=== PATIENT | female | born 1985 ===

== ENCOUNTER 2020-09-22 09:11 | Outpatient (REF) | payer MEDICAID, SELFPAY ==
--- NOTE | 2020-09-22 09:19 | EMG_ITS ---
Right median and ulnar motor and sensory studies were performed. Right radial sensory study was performed and paraspinal muscles were tested. IMPRESSION: Mild right median neuropathy across carpal tunnel. MD EDWARD Church/LIV / [id number]
== END 2020-09-22 09:12 | disposition home or self-care (01) ==
LOC: HO.NEURO 09:11
PROVIDERS: PCP Emergency Medicine; Visit Provider Emergency Medicine
DX: M25.531 Pain in right wrist (principal); M79.641 Pain in right hand
CPT/HCPCS: 95860; 95886; 95909

== ENCOUNTER 2021-02-08 18:02 | Emergency (ER) | payer MEDICAID, SELFPAY ==
[2021-02-08 20:37] VITALS: BP 129/85; PULSE 69; RESP 16; TEMP 37.1; O2SAT 97; BMI 22.4
--- NOTE | 2021-02-08 21:33 | ED_ITS ---
HPI - Wound/Laceration General Chief Complaint: Wound/Laceration Stated Complaint: Finger lac Time Seen by Provider: 02/08/21 21:33 Source: patient and contact center engineer Mode of arrival: ambulatory History of Present Illness HPI narrative: This is a 35-year-old female who presents after having lacerated her right index finger on the dorsum side at the approximate PIP location and is unclear about when her last tetanus vaccination was received. She denies any changes in range of motion of that finger and denies any numbness/tingling. Related Data Allergies Allergy/AdvReac Type Severity Reaction Status Date / Time tramadol [TRAMADOL] Allergy Unknown UNKNOWN, Unverified 08/18/20 18:55 rash, rash Review of Systems Review of Systems: Pertinent positives and negatives as stated in HPI 10 point review of systems is otherwise negative. PMFSH Past Medical History Source: nursing notes reviewed Medical History No known health problems Social History Social History Alcohol intake: never Smoked in Last 30 Days: No Use of substances other than those prescribed or required for medical reasons: No Advance Directives: No Advance Directives Information Provided: Yes Physical Exam Vital Signs: Vital Signs: Last Vital Signs Temp 98.7 F 02/08/21 20:37 Pulse 69 02/08/21 20:37 Resp 16 02/08/21 20:37 BP 129/85 02/08/21 20:37 Pulse Ox 97 02/08/21 20:37 Body Mass Index 22.4 VITAL SIGNS: Reviewed. GENERAL: Well developed, well nourished, in no acute distress. HEAD: Normocephalic/atraumatic, EYES: PERRLA, EOMI EARS: Ext canals without abnormality NOSE: Nares patent bilateral OROPHARYNX: no oral lesions noted, posterior pharynx clear NECK: Supple, no adenopathy LUNGS: Normal breath sounds. SpO2<97> CARDIOVASCULAR: Regular rate and rhythm without noted murmurs ABDOMEN: Soft, non-tender, non-distended with bowel sounds. RIGHT INDEX FINGER: 2 cm superficial laceration to the right dorsum index finger, hemostatic, capillary refill less than 3 seconds, sensation intact, no evidence of limited extension or flexion at the PIP NEUROLOGIC: Alert and oriented x 4. Course Course Course Narrative: This is a 35-year-old female with history and clinical presentation consistent with superficial laceration to the right index finger without limitations in range of motion or sensation noted. Patient tolerated repair of this laceration without complications and was discharged home in stable condition after receiving her Tdap. She was instructed to return in 5 days for removal of sutures. Procedures Laceration Laceration 1: Site: hand (Index finger PIP) Side (If applicable): right Size (cm): 2 Description: linear Depth: simple, single layer Local Anesthetic: lidocaine 1% Amount of anesthesia used (mL): 5 Pre-repair: wound explored, irrigated extensively and deep structures intact Skin layer closed with: nylon Size (cm): 4-0 Number of sutures: 3 Technique: simple, interrupted Discharge Plan Discharge Clinical Impression: Laceration Patient Disposition: Home, Self-Care Instructions: Care For Your Stitches (ED), Finger Laceration (ED) Additional Instructions: 1. Tylenol 1000 mg, por v?a oral, cada 6 horas seg?n sea necesario para sean corporales y temperaturas superiores a 100,4?C. No exceda los 4000 mg en 24 horas. 2. Ibuprofeno 400 mg, por v?a oral con leche o alimentos, cada 6 horas seg?n sea necesario para los sean corporales y temperaturas superiores a 100,4?C. 3. Puede quitar el vendaje en 24 horas y limpiar la herida con agua y jab?n, luego secar y aplicar un mayra?ento antibi?valentine de venta lucy con bladimir tirita. 3. Debe pedirle a patel proveedor de atenci?n primaria que retire las suturas en 5 d?as, o puede regresar a esta dago de emergencias para que se las retiren. No dude en volver al servicio de urgencias si empez? a desarrollar enrojecimiento, hinchaz?n, supuraci?n purulenta, fiebre, escalofr?os. Referrals: Physician,Unknown [Primary Care Provider] - 2 days Interventions: ED Discharge Assessment Last Done: 02/08/21 22:35 Discharge Date/Time: 02/08/21 22:37 Print Language: Citizen Of [place]
[2021-02-08] MEDS: Lidocaine HCl 1 % MPF 5 ML VIAL INFILTRATI (21:53)
== END 2021-02-08 22:37 | disposition home or self-care (01) ==
PROVIDERS: Emergency Provider Student in an Organized Health Care Education/Training Program
DX: S61.210A Laceration without foreign body of right index finger without damage to nail, initial encounter (principal); W26.8XXA Contact with other sharp object(s), not elsewhere classified, initial encounter; Y93.G1 Activity, food preparation and clean up; Y92.010 Kitchen of single-family (private) house as the place of occurrence of the external cause; Y99.9 Unspecified external cause status
CPT/HCPCS: 12001; 90471; 90715; 99284

== ENCOUNTER 2021-09-22 13:42 | Outpatient (REF) | payer MEDICAID, SELFPAY ==
--- NOTE | ~2021-09-22 | MM_ITS ---
EXAMINATION: MM DIAGNOSTIC DIGITAL BREAST TOMOSYNTHESIS, BILATERAL US DIAGNOSTIC ULTRASOUND BREAST, LEFT CLINICAL INFORMATION: 35-year-old with chronic pea-sized palpable area left axilla for over one year. No prior breast imaging. No known family history breast cancer. The lifetime risk of breast cancer based on the Tyrer-Cuzick Model is 10%. COMPARISON: None (current study represents initial baseline exam). TECHNIQUE: Digital breast tomosynthesis is performed in both the craniocaudal and mediolateral oblique views along with computer-aided detection (CAD). Synthesized 2D images are generated from the tomosynthesis. Ultrasound left axilla is targeted to the area of clinical concern. Patient is able to point to the area at time of imaging. Grayscale imaging and color Doppler are performed without and with harmonics. FINDINGS: There are scattered areas of fibroglandular density (ACR BI-RADS breast composition Category b). There are no significant masses, abnormal calcifications, or other abnormalities. There is a dermal lesion overlying the posterior 1:00 right breast. The axilla and skin contours are unremarkable. Ultrasound left axilla demonstrates no cystic or solid mass or adenopathy. There is no skin thickening or edema tracking in soft tissue planes. Results are discussed with the patient at time of visit. Patient should be managed based on the clinical impression. If there remains a clinically palpable concern, further evaluation may be considered with surgical consult. Decision to proceed with biopsy should be based on clinical grounds and degree of clinical concern. MM/MM tomosynthesis diagnostic BI IMPRESSION: 1. No mammographic evidence of malignancy or inflammatory changes. 2. Unremarkable ultrasound left axilla. ASSESSMENT: BI-RADS 1: Negative RECOMMENDATION: 1. Patient should be managed based on the clinical impression. If there remains a clinically palpable concern, further evaluation may be considered with surgical consult. Decision to proceed with biopsy should be based on clinical grounds and degree of clinical concern. 2. Otherwise, routine annual screening mammography, beginning age 40, or earlier as clinical risk factors warrant. This patient's information was entered into a reminder system with a target due date for their next mammogram.
== END 2021-09-22 13:43 | disposition home or self-care (01) ==
LOC: HO.MAMMO 13:42
PROVIDERS: PCP Internal Medicine; Visit Provider Advanced Practice Midwife
DX: N63.32 Unspecified lump in axillary tail of the left breast (principal)
CPT/HCPCS: 76642; 77062; 77066

== ENCOUNTER 2021-10-12 13:18 | Outpatient (REF) | payer MEDICAID, SELFPAY | END 2021-10-12 13:19 | disposition home or self-care (01) | LOC: HO.US 13:18 | PROVIDERS: PCP Internal Medicine; Visit Provider Advanced Practice Midwife | DX: Z13.89 Encounter for screening for other disorder (principal) ==

== ENCOUNTER 2021-10-24 15:55 | Outpatient (REF) | payer MEDICAID, SELFPAY ==
--- NOTE | ~2021-10-24 | US_ITS ---
EXAMINATION: US PELVIS CLINICAL INFORMATION: Left lower quadrant pain. COMPARISON: None TECHNIQUE: Ultrasound of the pelvis is performed using both transabdominal and transvaginal transducers along with Doppler. Transvaginal imaging is performed due to inadequate visualization transabdominally. FINDINGS: Uterus: The uterus is anteverted and measures 10.0 cm in length, 3.5 cm in AP and 5.4 cm in transverse dimension. The endometrial thickness is 0.8 cm. The double wall endometrial thickness is 8 mm. The uterus is smooth in contour and has normal myometrial echogenicity. No visible fibroid. Adnexa: Both ovaries are visualized. There is normal color flow to the adnexa. There is no ovarian torsion. There is no pelvic ascites or fluid collection. Right ovary measures 2.1 x 3.1 x 2.0 and volume 6.7 mL. Left ovary measures 2.3 x 1.8 x 1.8 cm and volume 4.0 mL. There is no free fluid in the cul-de-sac. US/US pelvic and transvaginal IMPRESSION: Unremarkable uterus. Unremarkable ovaries.
== END 2021-10-24 15:56 | disposition home or self-care (01) ==
LOC: HO.US 15:55
PROVIDERS: PCP Internal Medicine; Visit Provider Advanced Practice Midwife
DX: R10.32 Left lower quadrant pain (principal)
CPT/HCPCS: 76830; 76856

== ENCOUNTER → 2022-02-21 12:38 | Outpatient (REF) | payer MEDICAID, SELFPAY ==
--- NOTE | 2022-02-21 13:06 | ECG_ITS ---
Hook-up date: 2022-02-21 12:25:00 Duration: 25:44:00 Test Indications: UNSPEC. ANEMIA Medications: [id number] QRS complexes 33 Ventricular ectopics which represent <1 % of total QRS comp. 14 Supraventricular ectopics which represent <1 % of total QRS comp. * Paced QRS complexs which represent % of total QRS comp. VENTRICULAR ECTOPY 33 Isolated 0 Bigeminal Cycles 0 Couplets 0 Runs 0 Beats in Runs * Beats LONGEST at * BPM at :: -- * Beats FASTEST at * BPM at :: -- SUPRAVENTRICULAR ECTOPY 12 Isolated 1 Couplets 0 Runs 0 Beats in Runs * Beats LONGEST at * BPM at :: -- * Beats FASTEST at * BPM at :: -- HEART RATES 45 MIN at 01:46:28 2022-02-22 73 AVG 133 MAX at 15:53:37 2022-02-21 LONGEST RR 1.4960 secs at 03:56:08 2022-02-22 S-T LEVELS Channel 1 - 128 mm at 12:25:00 2022-02-21 - 128 mm at 12:25:00 2022-02-21 Channel 2 - 128 mm at 12:25:00 2022-02-21 - 128 mm at 12:25:00 2022-02-21 Channel 3 - 128 mm at 03:14:41 -- - 128 mm at 03:14:41 Underlying rhythm is sinus; Average ventricular rate 73/min; range 45-133/min; Rare supraventricular and ventricular ectopy; No sustained arrhythmias; Patient did not report any symptoms in the diary Referred By: Aster Barriga Overread By: AMY CHRISTOPHER
== END ==
LOC: HO.CARD 12:38
PROVIDERS: PCP Family Medicine; Visit Provider Family Medicine
DX: R42 Dizziness and giddiness (principal); D64.9 Anemia, unspecified
CPT/HCPCS: 93225; 93226

== ENCOUNTER 2022-09-17 10:01 | Outpatient (REF) | payer MEDICAID, SELFPAY ==
[2022-09-17 11:22] LABS: MANUAL DIFF FLAG NO
[2022-09-17 11:52] LABS: Basophils Percent Auto 0.4 % (0-2); Eosinophils Absolute Auto 0.1 X10*3/uL (0.0-0.4); Eosinophils Percent Auto 1.4 % (0-4); Hematocrit 39.3 % (37.0-47.0); Hemoglobin 12.4 g/dl (12.0-16.0); Imm Gran Abs Auto 0.01 X10*3/uL (0.00-0.03); Imm Gran Pct Auto 0.2 % (0.0-0.4); Lymphocytes Absolute Auto 1.9 X10*3/uL (1.2-4.9); Lymphocytes Percent Auto 37.9 % (20-40); Mean Corpuscular HGB Conc 31.6 g/dl (31.0-35.0); Mean Corpuscular Hemoglobin 24.4 pg (27.0-33.0); Mean Corpuscular Volume 77.2 fL (80.0-98.0); Mean Platelet Volume 10.6 fL (9.4-12.3); Monocytes Absolute Auto 0.4 X10*3/uL (0.1-1.2); Monocytes Percent Auto 8.2 % (2-11); Neutrophils Absolute Auto 2.5 x10*3/uL (2.0-8.3); Neutrophils Percent Auto 51.9 % (45-73); Platelet Count 198 X10*3/uL (160-400); Red Blood Count 5.09 X10*6/uL (4.20-5.50); Red Cell Distribution Width 14.6 % (11.0-16.0); White Blood Count 4.9 X10*3/uL (4.8-10.8)
[2022-09-17 12:04] LABS: Estimated Average Glucose 97 mg/dL
[2022-09-17 12:25] LABS: Alanine Aminotransferase 7 U/L (0-31); Albumin Level 4.5 g/dL (3.5-5.0); Alkaline Phosphatase 50 U/L (39-117); Anion Gap 14 (12-20); Aspartate Amino Transferase 14 U/L (5-31); Bilirubin Total 0.9 mg/dL (0.0-1.0); Blood Urea Nitrogen 8 mg/dL (9-16); Calcium 9.2 mg/dL (8.4-10.2); Carbon Dioxide 24 mmol/L (22-29); Chloride 105 mmol/L (96-108); Cholesterol 156 mg/dL; Estimated Glomerular Filt Rate > 60; Glucose Random 84 mg/dL (60-115); HDL Cholesterol 58 mg/dL; Iron 43 mcg/dL (30-160); LDL Cholesterol Calculated 86 mg/dl; Magnesium 2.1 mg/dL (1.6-2.6); Percent Iron Saturation 12 % (15-50); Potassium 4.2 mmol/L (3.3-5.1); Sodium 139 mmol/L (135-145); Total Iron Binding Capacity 364 mcg/dL (228-428); Total Protein 7.6 g/dL (6.5-8.0); Triglycerides 61 mg/dL; Unsaturated Iron Binding 321 ug/dL
[2022-09-17 12:29] LABS: Thyroid Stimulating Hormone 0.81 uIU/mL (0.32-4.0)
== END 2022-09-17 10:02 | disposition home or self-care (01) ==
LOC: HO.HMGCLDS 10:01
PROVIDERS: PCP Family Medicine; Visit Provider Family Medicine
DX: R19.5 Other fecal abnormalities (principal)
CPT/HCPCS: 36415; 80053; 80061; 83036; 83540; 83735; 84443; 85025

== ENCOUNTER 2022-09-18 | Outpatient (REF) | payer MEDICAID, SELFPAY ==
[2022-09-19 13:07] LABS: Campylobacter Not Detected (Not Detect.); Cryptosporidium Not Detected (Not Detect.); Cyclospora cayetanensis Not Detected (Not Detect.); E. coli EAEC Not Detected (Not Detect.); E. coli EPEC Not Detected (Not Detect.); E. coli ETEC Not Detected (Not Detect.); E. coli STEC Not Detected (Not Detect.); Entamoeba histolytica Not Detected (Not Detect.); Plesiomonas shigelloides Not Detected (Not Detect.); Salmonella Not Detected (Not Detect.); Shigella sp./EIEC Not Detected (Not Detect.); Vibrio Not Detected (Not Detect.); Vibrio Cholerae Not Detected (Not Detect.); Yersinia enterocolitica Not Detected (Not Detect.)
[2022-09-19 13:08] LABS: Adenovirus F 40/41 Not Detected (Not Detect.); Astrovirus Not Detected (Not Detect.); Giardia lamblia Not Detected (Not Detect.); Norovirus GI/GII Not Detected (Not Detect.); Rotavirus A Not Detected (Not Detect.); Sapovirus Not Detected (Not Detect.)
[2022-09-24 18:07] LABS: Calprotectin, Fecal 10 mcg/g
== END 2022-09-18 00:01 | disposition home or self-care (01) ==
LOC: HO.LNP
PROVIDERS: Visit Provider Family Medicine
DX: R19.5 Other fecal abnormalities (principal)
CPT/HCPCS: 83993; 87338; 87507

== ENCOUNTER 2022-11-01 14:43 | Outpatient (REF) | payer MEDICAID, SELFPAY ==
--- NOTE | ~2022-11-01 | US_ITS ---
EXAMINATION: US RETROPERITONEAL LIMITED (RENAL ONLY) CLINICAL INFORMATION: Right flank pain. COMPARISON: CT abdomen and pelvis 03/24/2017. Ultrasound abdomen complete 06/22/2015. TECHNIQUE: Real-time imaging of the kidneys. FINDINGS: RIGHT KIDNEY: 11.3 x 5.8 x 5.0 cm (SAG x AP x TRV). The kidney is normal in size, contour, and echogenicity. Renal cortical thickness is normal. No calculi or focal parenchymal lesions. No hydronephrosis. There is small amount pelvic fullness LEFT KIDNEY: 10.1 x 5.2 x 5.4 cm (SAG x AP x TRV). The kidney is normal in size, contour, and echogenicity. Renal cortical thickness is normal. No calculi or focal parenchymal lesions. No hydronephrosis. ADDITIONAL FINDINGS: There is a small amount of pelvic fullness. US/US renal BI IMPRESSION: Unremarkable renal ultrasound except for bilateral pelvic fullness.
== END 2022-11-01 14:44 | disposition home or self-care (01) ==
LOC: HO.US 14:43
PROVIDERS: PCP Family Medicine; Visit Provider Registered Nurse
DX: N23 Unspecified renal colic (principal)
CPT/HCPCS: 76775

== ENCOUNTER 2023-03-19 10:17 | Outpatient (REF) | payer MEDICAID, SELFPAY ==
--- NOTE | ~2023-03-19 | XR_ITS ---
EXAMINATION: XR HAND, RIGHT CLINICAL INFORMATION: Right hand pain COMPARISON: 08/18/2020 TECHNIQUE: PA, lateral, and oblique views of the right hand. FINDINGS: The bones and soft tissues are normal. No fracture. Alignment is anatomic. Joint spaces are maintained. No erosions or soft tissue calcifications. XR/XR hand RT min 3V IMPRESSION: Normal right hand.
== END 2023-03-19 10:18 | disposition home or self-care (01) ==
LOC: HO.HOSX 10:17
PROVIDERS: PCP Family Medicine; Visit Provider Orthopaedic Surgery
DX: M79.641 Pain in right hand (principal); G56.01 Carpal tunnel syndrome, right upper limb
CPT/HCPCS: 73130; 99202

== ENCOUNTER 2023-09-04 | Outpatient (REF) | payer MEDICAID, SELFPAY | END 2023-09-04 00:01 | disposition home or self-care (01) | LOC: HO.HHCLNP | PROVIDERS: Visit Provider Internal Medicine | DX: R05.9 Cough, unspecified (principal) | CPT/HCPCS: 0241U ==

== ENCOUNTER 2023-09-10 15:52 | Outpatient (REF) | payer MEDICAID, SELFPAY | END 2023-09-10 15:53 | disposition home or self-care (01) | LOC: HO.HHCX 15:52 | PROVIDERS: Visit Provider Internal Medicine | DX: J45.901 Unspecified asthma with (acute) exacerbation (principal) | CPT/HCPCS: 71046 ==

== ENCOUNTER 2023-10-16 20:32 | Outpatient (REF) | payer MEDICAID, SELFPAY ==
[2023-10-17 02:44] LABS: CT PCR NOT DETECTED (Not Detect.); NG PCR NOT DETECTED (Not Detect.)
== END 2023-10-16 20:33 | disposition home or self-care (01) ==
LOC: HO.HHCLNP 20:32
PROVIDERS: Visit Provider Family Medicine
DX: M77.12 Lateral epicondylitis, left elbow (principal)
CPT/HCPCS: 0353U

== ENCOUNTER 2023-10-17 08:32 | Outpatient (REF) | payer MEDICAID, SELFPAY ==
[2023-10-17 11:07] LABS: MANUAL DIFF FLAG NO
[2023-10-17 11:10] LABS: Basophils Percent Auto 0.8 % (0-2); Eosinophils Absolute Auto 0.1 X10*3/uL (0.0-0.4); Eosinophils Percent Auto 2.1 % (0-4); Hematocrit 37.3 % (37.0-47.0); Hemoglobin 11.6 g/dl (12.0-16.0); Imm Gran Abs Auto 0.02 X10*3/uL (0.00-0.03); Imm Gran Pct Auto 0.4 % (0.0-0.4); Lymphocytes Absolute Auto 1.5 X10*3/uL (1.2-4.9); Lymphocytes Percent Auto 31.6 % (20-40); Mean Corpuscular HGB Conc 31.1 g/dl (31.0-35.0); Mean Corpuscular Hemoglobin 22.9 pg (27.0-33.0); Mean Corpuscular Volume 73.7 fL (80.0-98.0); Mean Platelet Volume 10.5 fL (9.4-12.3); Monocytes Absolute Auto 0.4 X10*3/uL (0.1-1.2); Monocytes Percent Auto 8.4 % (2-11); Neutrophils Absolute Auto 2.7 x10*3/uL (2.0-8.3); Neutrophils Percent Auto 56.7 % (45-73); Platelet Count 207 X10*3/uL (160-400); Red Blood Count 5.06 X10*6/uL (4.20-5.50); Red Cell Distribution Width 13.8 % (11.0-16.0); White Blood Count 4.7 X10*3/uL (4.8-10.8)
[2023-10-17 11:52] LABS: TSH reflex Free T4 1.17 uIU/mL (0.32-4.0)
[2023-10-17 11:53] LABS: HIV AB/AG Nonreactive (Nonreactive); HIV Num 1 0.05 S/CO (0.00-0.99); ~HepC Num1 0.18 S/CO (0.00-0.79); ~Hepatitis C Antibody Nonreactive (Nonreactive)
[2023-10-18 12:58] LABS: Herpes Simplex Type 2 IgG 1.13 index
== END 2023-10-17 08:33 | disposition home or self-care (01) ==
LOC: HO.HMGCLDS 08:32
PROVIDERS: PCP Family Medicine; Visit Provider Family Medicine
DX: Z11.4 Encounter for screening for human immunodeficiency virus [HIV] (principal); N93.9 Abnormal uterine and vaginal bleeding, unspecified; M77.12 Lateral epicondylitis, left elbow; A04.8 Other specified bacterial intestinal infections
CPT/HCPCS: 36415; 84443; 85025; 86695; 86696; 86787; 86803; 87389

== ENCOUNTER 2023-10-30 11:31 | Outpatient (REF) | payer MEDICAID, SELFPAY | END 2023-10-30 11:32 | disposition home or self-care (01) | LOC: HO.HMGCLNP 11:31 | PROVIDERS: Visit Provider Family Medicine | DX: A04.8 Other specified bacterial intestinal infections (principal) | CPT/HCPCS: 87338 ==

== ENCOUNTER 2023-10-30 20:00 | Outpatient (REF) | payer MEDICAID, SELFPAY | END 2023-10-30 20:01 | disposition home or self-care (01) | LOC: HO.HMGCLNP 20:00 | PROVIDERS: PCP Family Medicine; Visit Provider Family Medicine | DX: Z13.89 Encounter for screening for other disorder (principal) ==

== ENCOUNTER 2023-11-18 15:44 | Outpatient (REF) | payer MEDICAID, SELFPAY ==
--- NOTE | ~2023-11-18 | US_ITS ---
EXAMINATION: US PELVIS CLINICAL INFORMATION: Abnormal uterine and vaginal bleeding. Last menstrual period 11/13/2023. COMPARISON: None available. TECHNIQUE: Ultrasound of the pelvis is performed using both transabdominal and transvaginal transducers along with Doppler. Transvaginal imaging is performed due to inadequate visualization transabdominally. FINDINGS: The uterus is heterogeneous and measures 8.9 x 4.8 x 5.7 cm. No discrete fibroids identified. Prominent vasculature in the bilateral adnexa is characteristic of pelvic congestion. Endometrial thickness is 0.6 cm. Left ovary measures 2.1 x 1.3 x 1.7 cm, volume 3.6 mL. Right ovary measures 3.1 x 1.3 x 1.7 cm, volume 3.6 mm. Bilateral ovaries are grossly unremarkable, although visualization is limited due to bowel gas. Endometrial thickness is 0.6 cm. Right adnexal 1.6 x 1.4 x 1.3 cm simple cyst is characteristic of a dominant follicle. US/US pelvic and transvaginal IMPRESSION: 1. Heterogeneous uterus. No discrete fibroids. 2. Endometrial thickness is 0.6 cm. 3. Bilateral ovaries are grossly unremarkable, although visualization limited due to bowel gas. 4. Prominent vasculature in the bilateral adnexa is characteristic of pelvic congestion.
== END 2023-11-18 15:45 | disposition home or self-care (01) ==
LOC: HO.US 15:44
PROVIDERS: PCP Family Medicine; Visit Provider Family Medicine
DX: N93.9 Abnormal uterine and vaginal bleeding, unspecified (principal)
CPT/HCPCS: 76830; 76856

== ENCOUNTER 2023-11-19 17:45 | Outpatient (REF) | payer MEDICAID, SELFPAY ==
[2023-11-20 12:46] LABS: Influenza A PCR NEGATIVE (Negative); Influenza B PCR NEGATIVE (Negative); Resp Syncy Virus RNA Qual PCR NEGATIVE (Negative); SARS COV2 PCR INHOUSE NEGATIVE (Negative)
== END 2023-11-19 17:46 | disposition home or self-care (01) ==
LOC: HO.HHCLNP 17:45
PROVIDERS: Visit Provider Family Medicine
DX: Z11.52 Encounter for screening for COVID-19 (principal); J06.9 Acute upper respiratory infection, unspecified
CPT/HCPCS: 0241U

== ENCOUNTER 2024-02-19 14:38 | Outpatient (AMB) | payer MEDICAID, SELFPAY ==
[2024-02-19 14:50] VITALS: BP 106/60; BMI 21.9
--- NOTE | 2024-02-19 14:50 | MHC.OFFVIS ---
Intake Vital Signs 02/19/24 14:50 Height 5 ft 8 in Weight 144 lb BMI 21.9 BP 106/60 Intake Visit Reasons: Pelvic congestion syndrom/PCP Ref Farmworker Chicken Farm Required: Yes Farmworker [employer] Language: Sharepoint Developer Name: Belkys ELIZABETH Information Interpreted: non-clinical & clinical Grove Worker: Grove Worker Present (Belkys ELIZABETH) Accompanied by: Self / Same As Patient Allergies tramadol [TRAMADOL] Allergy (Unknown, Unverified 02/19/24 14:52) taquicardia Is last menstrual period known: Yes Last menstrual period: 02/03/24 HPI HPI Comments History of Present Illness Details Presenting referred from her PCP for heavy menstrual cycles associated with pelvic cramping, a pelvic ultrasound was ordered and the patient was started on control pills. The patient is not having any pelvic pain no other associated symptoms Pelvic ultrasound done in 11/23 showed the following: The uterus is heterogeneous and measures 8.9 x 4.8 x 5.7 cm. No discrete fibroids identified. Prominent vasculature in the bilateral adnexa is characteristic of pelvic congestion. Endometrial thickness is 0.6 cm. Left ovary measures 2.1 x 1.3 x 1.7 cm, volume 3.6 mL. Right ovary measures 3.1 x 1.3 x 1.7 cm, volume 3.6 mm. Bilateral ovaries are grossly unremarkable, although visualization is limited due to bowel gas. Endometrial thickness is 0.6 cm. Right adnexal 1.6 x 1.4 x 1.3 cm simple cyst is characteristic of a dominant follicle. Last co testing? [facility] Medical History Vertigo No known health problems Surgical History Hx of section Family History Family/Other Breast cancer Social History Household Members: Children Housing: House Alcohol intake: never Patient Tobacco Use Status: Never used Tobacco Current occupational status: employed Current occupation: lunch lady/ right hand Sexually active: No Sexual orientation: Straight/Heterosexual Gender identity: Female Female Reproductive History Menstrual Date of last menstrual period: 02/03/24 control method: pills Total pregnancies: 5 Number of Living Children: 2 Ab spontaneous: 1 Ectopics: 1 Review of Systems Const All systems reviewed & are unremarkable except as noted in HPI and below Card Reports as per HPI Resp Reports as per HPI GI Reports as per HPI and Reports no additional complaints Reports as per HPI Physical Exam Vital Signs: Last Vital Signs BP 106/60 02/19/24 14:50 BMI result Body Mass Index 21.9 Const General: cooperative, healthy appearing and comfortable Chest Chest palpation & inspection: normal inspection of the chest and normal palpation of entire chest wall Breast/axilla inspection: normal inspection of the breasts and normal inspection of the axillae Breast/axilla palpation: normal palpation of the breasts, normal palpation of the axillae and no axillary lymphadenopathy Resp Effort & Inspection: normal respiratory effort Auscultation: clear to auscultation bilaterally Percussion: percussion normal Cardio Palpation: normal PMI Rate: regular rate Rhythm: regular rhythm Heart sounds: no murmurs and no rubs Peripheral pulses: Peripheral pulses 2+ throughout GI Inspection: Yes normal to inspection Palpation (GI): Soft to palpation, nontender, no guarding, not rigid and No hepatosplenomegaly present Percussion: Yes normal to percussion Auscultation: normal bowel sounds Rectal Exam - Female: deferred General: Yes bladder normal to palpation External Female Exam: No lesion Speculum Exam - Vagina: normal appearance of the vagina, normal palpation, normal vaginal discharge and not erythematous Speculum Exam - Cervix: normal appearance of the cervix and normal palpation Bimanual exam- vagina & uterus: normal bimanual exam, normal palpation, uterine size normal, bladder normal to palpation, consistency normal and normal palpation Bimanual Exam- Adnexa, other: normal adnexae, no masses and no tenderness Assessment & Plan Assessment & Plan (1) Abnormal uterine bleeding (AUB): Code(s): N93.9 - Abnormal uterine and vaginal bleeding, unspecified Plan: Co testing done, GC and chlamydia taken CBC, prolactin, TSH, HCG ordered. Discussed with the patient the different causes of abnormal bleeding including thyroid disorders, uterine and ovarian pathology, endometrial hyperplasia, carcinoma and other potential causes. Discussed with the patient the work up including endometrial biopsy to r/o endometrial pathology. All questions answered and the patient verbalized understanding. Instructed the patient to schedule an appointment for an endometrial biopsy in 2 weeks. Orders: Orders Complete Blood Count no Diff Today N93.9 - Abnormal uterine and vaginal bleeding, unspecified TSH reflex Free T4 Today N93.9 - Abnormal uterine and vaginal bleeding, unspecified HCG Quantitative Today N93.9 - Abnormal uterine and vaginal bleeding, unspecified Prolactin Today N93.9 - Abnormal uterine and vaginal bleeding, unspecified Coding Level of Care Code New Pt Level 3 (26196) Diagnoses Abnormal uterine bleeding (AUB) N93.9
== END 2024-02-19 15:15 | disposition home or self-care (01) ==
PROVIDERS: PCP Family Medicine; Visit Provider Obstetrics & Gynecology
DX: N93.9 Abnormal uterine and vaginal bleeding, unspecified (principal)
CPT/HCPCS: 99203

== ENCOUNTER 2024-02-19 14:38 | Outpatient (REF) | payer MEDICAID, SELFPAY ==
[2024-02-25 12:38] LABS: HPV mRNA E6/E7 rflx Not Detected (Not Detected)
== END 2024-02-19 14:39 | disposition home or self-care (01) ==
LOC: HO.LNP 14:38
PROVIDERS: PCP Family Medicine; Visit Provider Obstetrics & Gynecology
DX: Z12.4 Encounter for screening for malignant neoplasm of cervix (principal); Z11.51 Encounter for screening for human papillomavirus (HPV); N93.9 Abnormal uterine and vaginal bleeding, unspecified; N94.89 Other specified conditions associated with female genital organs and menstrual cycle
CPT/HCPCS: 0353U; 84146; 84443; 84702; 85027; 87624; 88142; 99202

== ENCOUNTER 2024-02-19 15:21 | Outpatient (REF) | payer MEDICAID, SELFPAY ==
[2024-02-19 15:48] LABS: Hematocrit 36.1 % (37.0-47.0); Hemoglobin 11.7 g/dl (12.0-16.0); Mean Corpuscular HGB Conc 32.4 g/dl (31.0-35.0); Mean Corpuscular Hemoglobin 23.7 pg (27.0-33.0); Mean Corpuscular Volume 73.1 fL (80.0-98.0); Mean Platelet Volume 10.1 fL (9.4-12.3); Platelet Count 222 X10*3/uL (160-400); Red Blood Count 4.94 X10*6/uL (4.20-5.50); Red Cell Distribution Width 14.6 % (11.0-16.0); White Blood Count 6.3 X10*3/uL (4.8-10.8)
[2024-02-19 16:37] LABS: HCG Quantitative < 2 mIU/mL; TSH reflex Free T4 0.56 uIU/mL (0.32-4.0)
[2024-02-19 18:11] LABS: CT PCR NOT DETECTED (Not Detect.); NG PCR NOT DETECTED (Not Detect.)
[2024-02-21 08:59] LABS: Prolactin 11.5 ng/mL
== END 2024-02-19 15:22 | disposition home or self-care (01) ==
LOC: HO.LAB 15:21
PROVIDERS: PCP Family Medicine; Visit Provider Obstetrics & Gynecology
DX: N93.9 Abnormal uterine and vaginal bleeding, unspecified (principal); N94.89 Other specified conditions associated with female genital organs and menstrual cycle
CPT/HCPCS: 0353U; 84146; 84443; 84702; 85027

== ENCOUNTER 2024-04-14 15:20 | Outpatient (AMB) | payer MEDICAID, SELFPAY ==
--- NOTE | 2024-04-14 15:41 | A.OFFVIS_ITS ---
Vital Signs 04/14/24 15:53 Height 5 ft 8 in Weight 143 lb 4.807 oz BMI 21.8 BP 118/70 Intake Visit Reasons: EMB Game Breeding Farm Manager Required: Yes Game Breeding Farm Manager Language: Credit Office Manager Name: Belkys ELIZABETH Information Interpreted: non-clinical & clinical Oxygen Plant Operator: Oxygen Plant Operator Present (Belkys ELIZABETH) Accompanied by: Self / Same As Patient Allergies tramadol [TRAMADOL] Allergy (Unknown, Unverified 04/14/24 15:58) taquicardia HPI Comments Details: [facility] Medical History Vertigo No known health problems Surgical History Hx of section Family History Family/Other Breast cancer Social History Household Members: Children Housing: House Alcohol intake: never Patient Tobacco Use Status: Never used Tobacco Current occupational status: employed Current occupation: lunch lady/ right hand Sexual orientation: Straight/Heterosexual Gender identity: Female Review of Systems Const All systems reviewed & are unremarkable except as noted in HPI and below Reports as per HPI and Reports no additional complaints GI Reports no additional complaints Reports no additional complaints Physical Exam Vital Signs: Last Vital Signs BP 118/70 04/14/24 15:53 BMI result Body Mass Index 21.8 Office Procedures Endometrial Biopsy Details: The patient was counseled regarding the indication and benefits of endometrial sampling to rule out endometrial pathology including not limited to endometrial hyperplasia or endometrial cancer and others; The alternatives (Either do nothing vs. hysteroscopy D&C) & the risks were discussed with the patient including but not limited: pain, uterine perforation, bleeding, infection, possible injury to bladder, bowel, ureter, possible need for blood transfusion with all its possible risks. The patient verbalized understanding all questions answered and signed consent. Urine test done in the office was negative The patient was placed into the dorsal lithotomy position; a speculum was inserted in the vagina. Using aseptic technique for the procedure, the cervix was cleansed with Betadine. The anterior lip of the cervix was grasped with a single tooth tenaculum. The uterus was sounded to 7 cm with a 4 mm Pipelle was used. Tissues samples were obtained and placed in formalin, in a patient labeled container and sent to the pathology department. At the end of the procedure, there was minimal bleeding noted The patient tolerated the procedure well and was discharged in good condition with the following instructions: Nothing in the vagina until the bleeding stops. No sex until the bleeding stops, to call if any of the following occurs: fever (>100.4), flu-like symptoms, abdominal pain, heavy bleeding, four smelling vaginal discharge. The patient was instructed to schedule a Follow up appointment in 2 weeks to discuss pathology results of the biopsy and treatment options. This note was generated with a voice recognition program. Some errors may have been overlooked during the review of this note. Sometimes these errors may affect the content or meaning of a given sentence. [id number] Biopsy Results AMB Test Urine AMB Test Urine Negative Last Edit by Belkys Schuster CMA on 15:57 Results Reviewed Results Reviewed: Laboratory Last Values Tst Clinic Negative 04/14/24 15:56 Assessment & Plan Assessment & Plan (1) Abnormal uterine bleeding (AUB): Code(s): N93.9 - Abnormal uterine and vaginal bleeding, unspecified Category: Medical Plan: EMB done, see procedure note Orders: Orders AMB HCG Urine Test Today Z32.02 - Encounter for test, result negative AMB Endometrial Biopsy Today N93.9 - Abnormal uterine and vaginal bleeding, unspecified Coding Level of Care Code Procedure Only Diagnoses Abnormal uterine bleeding (AUB) N93.9 CPT Codes Endometrial Biopsy - CPT: 92023-Qzlgieyqcet Biopsy ([id number])
[2024-04-14 15:53] VITALS: BP 118/70; BMI 21.8
== END 2024-04-14 16:11 | disposition home or self-care (01) ==
LOC: HO.HWS 15:21
PROVIDERS: PCP Family Medicine; Visit Provider Obstetrics & Gynecology
DX: N93.9 Abnormal uterine and vaginal bleeding, unspecified (principal); Z32.02 Encounter for pregnancy test, result negative
CPT/HCPCS: 58100

== ENCOUNTER 2024-04-14 15:20 | Outpatient (REF) | payer MEDICAID, SELFPAY | END 2024-04-14 15:21 | disposition home or self-care (01) | LOC: HO.LNP 15:20 | PROVIDERS: PCP Family Medicine; Visit Provider Obstetrics & Gynecology | DX: N93.9 Abnormal uterine and vaginal bleeding, unspecified (principal) | CPT/HCPCS: 58100; 81025; 88305 ==

== ENCOUNTER 2024-05-26 10:59 | Outpatient (AMB) | payer MEDICAID, SELFPAY ==
--- NOTE | 2024-05-26 11:09 | A.OFFVIS_ITS ---
Vital Signs 05/26/24 11:12 Height 5 ft 8 in Weight 143 lb 4.807 oz BMI 21.8 Intake Visit Reasons: EMB results Director Of Residential Services Required: Yes Director Of Residential Services Language: Vice President Regulatory Services: Director Of Residential Services Present Director Of Residential Services Name: Belkys ELIZABETH Information Interpreted: non-clinical & clinical Accompanied by: Self / Same As Patient Allergies tramadol [TRAMADOL] Allergy (Unknown, Unverified 05/26/24 11:13) taquicardia Is last menstrual period known: Yes Last menstrual period: 05/02/24 HPI Comments Details: The patient is presenting for follow-up to discuss the results of her abnormal uterine bleeding workup and options of treatment. The following workup was done.: H&H= 11.7/36.1 TSH, prolactin, hCG, GC and chlamydia were negative. Endometrial biopsy pathology showed the following: Mildly disordered proliferative endometrium; no atypia or hyperplasia identified. Co testing was done was negative. Pelvic ultrasound showed the following: IMPRESSION: 1. Heterogeneous uterus. No discrete fibroids. 2. Endometrial thickness is 0.6 cm. 3. Bilateral ovaries are grossly unremarkable, although visualization limited due to bowel gas. 4. Prominent vasculature in the bilateral adnexa is characteristic of pelvic congestion. [facility] Medical History Vertigo No known health problems Surgical History Hx of section Family History Family/Other Breast cancer Social History Household Members: Children Housing: House Alcohol intake: never Patient Tobacco Use Status: Never used Tobacco Current occupational status: employed Current occupation: lunch lady/ right hand Sexual orientation: Straight/Heterosexual Gender identity: Female Female Reproductive History Menstrual Date of last menstrual period: 05/02/24 Review of Systems Const All systems reviewed & are unremarkable except as noted in HPI and below Reports as per HPI and Reports no additional complaints GI Reports no additional complaints Reports no additional complaints Physical Exam Vital Signs: BMI result Body Mass Index 21.8 Assessment & Plan Assessment & Plan (1) Abnormal uterine bleeding (AUB): Code(s): N93.9 - Abnormal uterine and vaginal bleeding, unspecified Category: Medical Plan: Discussed with the patient the results of the work up done and options of treatment including Lysteda, control pills, Mirena IUD, endometrial ablation and hysterectomy. All pros, cons, risks and benefits if each option was discussed with the patient and the patient decided to go ahead with Mirena IUD so a more detailed discussion about it was conducted including mechanism of action, risks (uterine perforation, infection, injury to bladder, bowel, d isplacement, and others) benefits (hypo menorrhea, amenorrhea, ...). GC/CT were taken and the patient was instructed to schedule Mirena IUD insertion on day 1-5 of next cycle . All questions answered, the patient verbalized understanding Coding Level of Care Code Est Pt Level 3 (71295) Diagnoses Abnormal uterine bleeding (AUB) N93.9
[2024-05-26 11:12] VITALS: BMI 21.8
== END 2024-05-26 12:33 | disposition home or self-care (01) ==
PROVIDERS: PCP Family Medicine; Referring Provider Family Medicine; Visit Provider Obstetrics & Gynecology
DX: N93.9 Abnormal uterine and vaginal bleeding, unspecified (principal)
CPT/HCPCS: 99213

== ENCOUNTER → 2024-05-26 10:59 | Outpatient (BNVA) | payer MEDICAID, SELFPAY | PROVIDERS: PCP Family Medicine; Visit Provider Obstetrics & Gynecology | DX: N93.9 Abnormal uterine and vaginal bleeding, unspecified (principal) | CPT/HCPCS: 99212 ==

== ENCOUNTER 2024-07-28 13:52 | Outpatient (AMB) | payer MEDICAID, SELFPAY ==
--- NOTE | 2024-07-28 13:57 | MHC.OFFWIV ---
Intake Vital Signs 07/28/24 13:59 Height 5 ft 8 in Weight 146 lb BMI 22.2 BP 120/82 Blood Pressure Location Lt brachial Position Sitting Pulse 86 Pulse Source Pulse Oximeter Pulse Oximetry (%) 96 Oxygen Delivery Method Room Air Intake Visit Reasons: ep rt lower back pain and pelvic burning Intake Note: Patient here for lower abdomin pressure and radiates down which has been going on for about 3 days. Patient Tobacco Use Status: Never used Tobacco Is last menstrual period known: Yes Last menstrual period: 07/12/24 Post menopausal: No Patient : No Allergies tramadol [TRAMADOL] Allergy (Unknown, Unverified 07/28/24 14:01) taquicardia Do you need a note to return to daycare/school/sports/work: No HPI HPI Comments History of Present Illness Details Patient is a 38-year-old female complaining of right-sided low back pain and lower abdominal pain, burning with urination and increased pressure in her bladder for 3 days. She denies any fevers, blood in her urine, history of kidney stones or increased frequency of urination. She states she got her period on July 13 and only had it for 3 days and then it stopped and it seemed to come back a couple of days later but then stopped after a day or 2 and that is not normal for her. She states that she is monogamous with her partner however she thinks her partner may have multiple partners. [facility] Medical History Vertigo No known health problems Surgical History Hx of section Family History Family/Other Breast cancer Social History Household Members: Children Housing: House Alcohol intake: never Patient Tobacco Use Status: Never used Tobacco Patient : No Current occupational status: employed Current occupation: lunch lady/ right hand Sexual orientation: Straight/Heterosexual Gender identity: Female Female Reproductive History Menstrual Date of last menstrual period: 07/12/24 Review of Systems Const All systems reviewed & are unremarkable except as noted in HPI and below Physical Exam Vital Signs: Last Vital Signs Pulse 86 08/27/24 13:59 BP 120/82 07/28/24 13:59 Pulse Ox 96 07/28/24 13:59 Oxygen Delivery Method Room Air 07/28/24 13:59 BMI result Body Mass Index 22.2 Const General: cooperative, healthy appearing, comfortable, no acute distress and well developed Orientation/consciousness: patient oriented x3 Limitations: no limitations HEENT Head: Yes normal to inspection Eyes General: appearance normal, both eyes and all related structures Neck Neck: Yes normal visual inspection and Yes full ROM Resp Effort & Inspection: normal respiratory effort and able to speak in complete sentences GI Inspection: Yes normal to inspection Palpation (GI): Soft to palpation and Tenderness to palpation present (GI) in the LLQ, in the RLQ and suprapubicly General: Yes CVA tenderness on the right Back/Spine/Pelvis Back: CVA tenderness Skin General skin exam: no rashes or lesions noted Neuro General: patient oriented x3 Extrem General: Yes normal to inspection Assessment & Plan Assessment & Plan (1) UTI (urinary tract infection): Code(s): N39.0 - Urinary tract infection, site not specified Qualifiers: Urinary tract infection type: acute cystitis Hematuria presence: with hematuria Qualified Code(s): N30.01 - Acute cystitis with hematuria Plan: UA positive for leukocyte esterase and blood. Difficult to decipher whether this is a just a urinary tract infection or if she has kidney stones. VSS, physical exam remarkable for positive CVA tenderness on the right side Had extensive conversation with Welsh-speaking MA interpreting to explain the difference and we gave the patient red flag warning signs and when to go to the emergency department to rule out a kidney stone. (2) Abnormal uterine bleeding (AUB): Code(s): N93.9 - Abnormal uterine and vaginal bleeding, unspecified Plan: Urine test negative. Did chlamydia and gonorrhea testing to be thorough, told patient we would call her with the results and treat, if necessary. Plan See above Coding Level of Care Code New Pt Level 4 (65811) Diagnoses Acute cystitis with hematuria N30.01 Urinary tract infection type: acute cystitis Hematuria presence: with hematuria Abnormal uterine bleeding (AUB) N93.9
[2024-07-28 13:59] VITALS: BP 120/82; PULSE 86; O2SAT 96; BMI 22.2
== END 2024-07-28 14:23 | disposition home or self-care (01) ==
PROVIDERS: PCP Family Medicine; Visit Provider Physician Assistant
DX: N30.01 Acute cystitis with hematuria (principal); N93.9 Abnormal uterine and vaginal bleeding, unspecified; R10.30 Lower abdominal pain, unspecified; Z13.9 Encounter for screening, unspecified
CPT/HCPCS: 81003; 81025; 99204

== ENCOUNTER 2024-07-28 14:31 | Outpatient (REF) | payer MEDICAID, SELFPAY ==
[2024-07-28 19:22] LABS: CT PCR NOT DETECTED (Not Detect.); NG PCR NOT DETECTED (Not Detect.)
== END 2024-07-28 14:32 | disposition home or self-care (01) ==
LOC: HO.LNP 14:31
PROVIDERS: Visit Provider Physician Assistant
DX: R10.30 Lower abdominal pain, unspecified (principal)
CPT/HCPCS: 87491; 87591

== ENCOUNTER 2025-05-27 13:46 | Outpatient (REF) | payer MEDICAID, SELFPAY ==
[2025-05-27 14:30] LABS: MANUAL DIFF FLAG NO
[2025-05-27 14:37] LABS: Basophils Percent Auto 0.7 % (0-2); Eosinophils Absolute Auto 0.1 X10*3/uL (0.0-0.4); Hematocrit 34.8 % (37.0-47.0); Hemoglobin 10.4 g/dl (12.0-16.0); Imm Gran Abs Auto 0.02 X10*3/uL (0.00-0.03); Imm Gran Pct Auto 0.4 % (0.0-0.4); Lymphocytes Absolute Auto 1.7 X10*3/uL (1.2-4.9); Lymphocytes Percent Auto 30.8 % (20-40); Mean Corpuscular HGB Conc 29.9 g/dl (31.0-35.0); Mean Corpuscular Hemoglobin 20.4 pg (27.0-33.0); Mean Corpuscular Volume 68.4 fL (80.0-98.0); Monocytes Absolute Auto 0.4 X10*3/uL (0.1-1.2); Monocytes Percent Auto 6.9 % (2-11); Neutrophils Absolute Auto 3.3 x10*3/uL (2.0-8.3); Neutrophils Percent Auto 59.2 % (45-73); Platelet Count 257 X10*3/uL (160-400); Red Blood Count 5.09 X10*6/uL (4.20-5.50); Red Cell Distribution Width 17.1 % (11.0-16.0); White Blood Count 5.5 X10*3/uL (4.8-10.8)
[2025-05-27 15:01] LABS: Rheumatoid Factor < 13.0 IU/mL (<15.0)
[2025-05-27 15:09] LABS: Alanine Aminotransferase 15 U/L (0-31); Albumin Level 4.4 g/dL (3.5-5.0); Alkaline Phosphatase 52 U/L (39-117); Anion Gap 10 (12-20); Aspartate Amino Transferase 21 U/L (5-31); Bilirubin Total 0.7 mg/dL (0.0-1.0); Blood Urea Nitrogen 8 mg/dL (9-16); Carbon Dioxide 25 mmol/L (22-29); Chloride 107 mmol/L (96-108); Cholesterol 141 mg/dL (<200); Estimated Glomerular Filt Rate > 60; Glucose Random 87 mg/dL (60-115); HDL Cholesterol 47 mg/dL (>40); LDL Cholesterol Calculated 75 mg/dL (<100); Sodium 138 mmol/L (135-145); Total Protein 7.3 g/dL (6.5-8.0); Triglycerides 99 mg/dL (<150)
[2025-05-27 15:37] LABS: TSH reflex Free T4 1.38 uIU/mL (0.32-4.0)
[2025-05-27 16:27] LABS: CT PCR Urine NOT DETECTED (Not Detect.); NG PCR Urine NOT DETECTED (Not Detect.)
--- OUTSIDE RECORDS SUMMARY | 2025-05-27 16:37 | XMS_ITS | Clinical Summary ---
Author Organization [employer] Address [address] [place] [address] Care Team Providers Care Hearings Reporter Name Role Phone Aster Barriga MD Primary Care Provider [phone] Allergies Active Allergy Reactions Criticality Noted Date Comments Tramadol Palpitations Low 08/25/2019 Other reaction(s): Itching Medications * This document contains information received from the source organization and may not represent a complete record from that organization. diclofenac (Cataflam) 50 MG tablet Take 1 tablet (50 mg) by mouth 3 times daily. 30 tablet 12/30/19 24 Active hydrOXYzine pamoate (Vistaril) 25 MG capsule Take 1 capsule (25 mg) by mouth every 8 (eight) hours if needed for anxiety. 90 capsule 1 01/17/20 24 Active venlafaxine XR (Effexor XR) 37.5 MG 24 hr capsule Take 1 capsule (37.5 mg) by mouth Once per day. Do not crush or chew. 30 capsule 2 06/10/20 24 Active venlafaxine XR (Effexor XR) 37.5 MG 24 hr capsule TAKE 1 CAPSULE BY MOUTH EVERY DAY. DO NOT CRUSH OR CHEW. 30 capsule 2 10/27/20 24 Active benzonatate (Tessalon Perles) 100 MG capsuleIndications :Exacerbation of asthma, unspecified asthma severity, unspecified whether persistent Take 1 capsule (100 mg) by mouth if needed in the morning, at noon, and at bedtime for cough. Do not crush or chew. 20 capsule 10/26/20 24 025 Active albuterol (2.5 MG/3ML) 0.083% nebulizer solutionIndication s:Exacerbation of asthma, unspecified asthma severity, unspecified whether persistent Take 3 mL (2.5 mg) by nebulization every 6 (six) hours if needed for wheezing. 75 mL 11 10/26/20 Active meclizine (Antivert) 25 MG tabletIndications: Vertigo Take 1 tablet (25 mg) by mouth if needed in the morning, at noon, and at bedtime for dizziness. 90 tablet 02/09/20 25 Active albuterol (Ventolin HFA) 108 (90 Base) MCG/ACT inhalerIndications :Mild intermittent asthma with exacerbation Inhale 2 puffs every 6 (six) hours if needed for wheezing. 18 g 02/06/20 25 Active Diclofenac Sodium 1 % gel Apply 5 g topically 4 times daily. 200 g 10/16/20 Discontin ued(Thera py completed ) ZOLMitriptan (Zomig ZMT) 5 MG disintegrating tabletIndications: Episodic cluster headache, not intractable Take 1 tablet (5 mg) by mouth 1 (one) time if needed for migraine (Take one tab at the onset of HAMLIN; may repeat one more dose in 2 hours (COLOMBIAN)) for up to 5 days. May repeat in 2 hours if unresolved. Do not exceed 10 mg in 24 hours. 10 tablet 11/05/20 025 Discontin ued(Thera py completed ) pantoprazole (Protonix) 20 MG EC tablet Take 1 tablet (20 mg) by mouth 2 times daily. Do not crush, chew, or split. 28 tablet 11/21/20 025 Discontin ued(Thera py completed ) Drospirenone (Slynd) 4 MG tablet Take 1 tablet by mouth in the morning. 28 tablet 12/03/19 025 Discontin ued(Thera py completed ) budesonide (Pulmicort Flexhaler) 180 MCG/ACT inhalerIndications :Exacerbation of asthma, unspecified asthma severity, unspecified whether persistent Inhale 1 puff in the morning and at bedtime. Rinse mouth with water after use to reduce aftertaste and incidence of candidiasis. Do not swallow. 1 each 10/26/20 025 Discontin ued(Thera py completed ) Active Problems Problem Noted Date Diagnosed Date Localized swelling of finger of right hand 05/27 Health maintenance alteration 05/27/[address] D (sexually transmitted disease) 05/27/2025 Lump in the groin 03/20/2024 Assessment & Plan (03/20/2024 3:53 PM EDT): 38 yo F with R side abdominal soft lump next to scar, r/o herniation vs other. [place] [facility] [place] she was seen in Jan 2024, needed a new order. Anxiety disorder, unspecified 01/17/2024 Assessment & Plan (03/20/2024 3:52 PM EDT): Continue current regimen and f/up with therapy. Followup in 4 months Assessment & Plan (02/14/2024 3:48 PM EDT): Reports feeling better with new rx, reports effexor does give her mild nausea. Has only needed to use hydroxyzine twice this week. Currently undergoing behavioral therapy. Will followup in 4 weeks via telemedicine. Assessment & Plan (01/31/2024 4:11 PM EST): Will with sertraline to effexor, will reassess in 2 weeks via telemedicine to discuss side effects. Continue vistaril prn and cont with therapy. Future Appointments Date Time Provider Department Center 02/14/2024 3:30 PM Aster Barriga MD [facility] Assessment & Plan (01/18/2024 11:23 AM EST): I prescribed Vistaril and Zoloft that will help with her anxiety and depression. I have educated the patient on Zoloft. I advised her it takes 4-6 weeks of regular dosing to reach its full therapeutic effect. I let her know her symptoms will worsen before they get better. I will F/U with her in 2 weeks to assess how the medication is going. Future Appointments Date Time Provider Department Center 01/31/2024 3:30 PM Aster Barriga MD [facility] Left lateral epicondylitis 10/16/2023 Assessment & Plan (10/16/2023 4:36 PM EST): Upon examination, patient was recommended to go to physical therapy and injections to improve elbow pain: patient denied. Therefore, patient will be prescribed Diclofenac. Patient was advised to notify office if symptoms don't improve: possible referral for hand surgery. Abnormal uterine bleeding (AUB) 10/16/2023 Assessment & Plan (10/16/2023 4:37 PM EST): Patient that presented visit with complaints of abnormal bleeding will be referred to [facility]. Possible Biopsy will be considered. -Labs: CBC, TSH/FT4. H. pylori infection 10/16/2023 Assessment & Plan (10/16/2023 4:37 PM EST): -Labs: Helicobacter(Stool). Routine screening for STI (sexually transmitted infection) 10/16/2023 Assessment & Plan (10/16/2023 4:35 PM EST): -Labs: Chlam./Gono. RNA, Hep.C, Herpes, HIV-1/2, Syphilis. Asthma exacerbation 09/10/2023 Assessment & Plan (10/26/2024 3:23 PM EST): Prednisone 40mg x 5 days Re-sent Pulmicort inhaler to restart after oral prednisone AZAM inhaler and vials sent ER precautions for lack of improvement in 1-2 days Assessment & Plan (09/10/2023 3:57 PM EDT): Identified asthma triggers, patient educated to avoid triggers C/w albuterol inhaler (2 puffs) every 4-6hrs Prednisone 60mg x 5days pulmicort to be started If symptoms continuos or worse call back or go to emergency room F/u with PCP Papule of skin 03/22/2023 Assessment & Plan (03/27/2023 1:20 PM EDT): Patient with rash in the area above her ankle, not poison tram, will send steroid and fup as needed Vertigo 01/22/2023 Assessment & Plan (01/22/2023 4:17 PM EST): Hx of BPPV, will send meclizine. F/u prn Mid back pain on right side 11/06/2022 Assessment & Plan (11/06/2022 4:25 PM EST): Seen by YADIRA Finnegan for flank pain. Concern for kidney stones. Description does not match and patient has tenderness in her mid back but it does not radiate to her flank. Will send muscle relaxer and diclofenac for pain. Pending US to r/o kidney stones. RTC if no improvement. Carpal tunnel syndrome 11/01/2022 Assessment & Plan (01/22/2023 4:18 PM EST): R sided symptomatic, reports had EMG that confirmed dx. At this point will send to hand surgeon, recommended use of brace at night Encounters * This document contains information received from the source organization and may not represent a complete record from that organization. Date Type Department Care Team Description 05/27/2025 1:30 PM EDT Office Visit [facility] [address] [place] [address] Aster Barriga MD Localized swelling of finger of right hand (Primary Dx); Health maintenance alteration; Screening examination for STD (sexually transmitted disease); Anxiety 05/27/2025 Travel 05/27/2025 Telephone [facility] [address] [place] [phone] Aster Barriga MD Nurse Triage from Last 3 Months Immunizations Immunization Administration Dates Next Due Tdap 02/08/2021,03/18/2017 Social History Tobacco Use Types Packs/Day Years Used Date Smoking Tobacco: Never Passive Smoke Exposure: Never Smokeless Tobacco: Never Tobacco Cessation:Counseling Given: Not Answered Alcohol Use Standard Drinks/Week Comments Never 0 (1 standard drink = 0.6 oz pur e alcohol) Depression Answer Date Recorded Patient Health Questionnaire-9 Score 0 01/17/2024 Patient Health Questionnaire-9 Score 0 01/17/2024 Last PHQ-9: Questionnaire Data Not on file 0 01/17/2024 Housing Stability Answer Date Recorded What is your housing situation today? I have [employer] 09/30/[address] you li ve. Do you have problems with any of the following? None of the above 09/30/2023 Food Insecurity Answer Date Recorded Within the past 12 months, y ou worried that your food would run out before you got money to buy more: Never True 09/30/2023 Within the past 12 months,th e food you bought just didn't last and you didn't have enough money to get more: Never True Transportation Answer Date Recorded In the past 12 months, has l ack of transportation kept you from medical appts, meetings, work or from getting things needed for daily living? No 09/30/2023 Utilities Answer Date Recorded In the past 12 months, has t he electric, gas, oil or water company threatened to shut off services in your home? No 09/30/2023 Depression Answer Date Recorded Patient Health Questionnaire-2 Score 0 01/17/2024 Comments No Sex and Gender Information Value Date Recorded Sex Assigned at Female 10/01/2022 10:36 AM EDT Legal Sex Female 10:36 AM EDT Gender Identity Female 10/01/2022 10:36 AM EDT Sexual Orientation Straight 10/01/2022 10 :36 AM EDT Last Filed Vital Signs Vital Sign Reading Time Taken Comments Blood Pressure 128/72 05/27/2025 1:26 PM EDT Pulse 68 05/27/2025 1:26 PM EDT Temperature 36.8 C (98.2 F) 05/27/2025 1:26 PM EDT Respiratory Rate 20 05/27/2025 1:26 PM EDT Oxygen Saturation 98% 05/27/2025 1:26 PM EDT Inhaled Oxygen Concentration - - Weight 64.4 kg (142 lb) 05/27/2025 1:26 PM EDT Height 175 cm (5' 8.9 ) 05/27/2025 1:26 PM EDT Body Mass Index 21.03 05/27/2025 1:26 PM EDT Plan of Treatment Health Maintenance Due Date Last Done Comments Disability Screening 1985 Alcohol/Substance Use Screening 1997 Family Planning (PISQ) 2000 Hepatitis B Vaccines (1 of 3 - 19+ 3-dose series) 2004 Pneumococcal Vaccine: Pediatrics (0 to 5 Years) and At-Risk Patients (6 to 49) Years (1 of 2 - PCV) 2004 SDOH Screening 03/22/2024 03/22/2023 COVID-19 Vaccine (1 - 2023-2 5 season) 2024 Depression Screening 01/17/2025 01/17/2024, 01/17/2024 Influenza Vaccine (Season Ended) 2025 Tobacco Screening 10/26/2025 10/26/2024 Cervical Cancer Screening 02/18/2029 HPV/Cotest 02/18/2029 09/12/2021 Pap Smear 02/18/2029 02/19/2024, 09/12/2021 DTaP/Tdap/Td Vaccines (3 - T d or Tdap) 02/08/2031 02/08/2021, 03/18/2017 Zoster Vaccines (1 of 2) 2035 RSV Patients and Patients Aged 60 years or older (1 - 1-dose 75+ series) 2060 HIV Screening Completed 10/17/2023, 07/31/2021 Hepatitis C Screening Completed 10/17/2023 , 07/31/2021 HIB Vaccines Aged Out No longer eligi ble based on patient's age to complete this topic HPV Vaccines Aged Out No longer eligi ble based on patient's age to complete this topic Hepatitis A Vaccines Aged Out No long er eligible based on patient's age to complete this topic IPV Vaccines Aged Out No longer eligi ble based on patient's age to complete this topic Meningococcal B Vaccine Aged Out No l onger eligible based on patient's age to complete this topic Meningococcal Vaccine Aged Out No nadeem shanna eligible based on patient's age to complete this topic RSV under 20 months Aged Out No longe r eligible based on patient's age to complete this topic Rotavirus Vaccines Aged Out No longer eligible based on patient's age to complete this topic Procedures Procedure Name Priority Date/Time Associated Diagnosis Comments C-REACTIVE PROTEIN Routine 05/27/2025 1: 48 PM EDT Localized swelling of finger of right hand RHEUMATOID FACTOR Routine 05/27/2025 1:4 8 PM EDT Localized swelling of finger of right hand TSH W/REFLEX TO FT4 Routine 05/27/2025 1 :48 PM EDT Health maintenance alteration LIPID PANEL, STANDARD Routine 05/27/2025 1:48 PM EDT Health maintenance alteration COMPREHENSIVE METABOLIC PANEL Routine 05/27/2025 1:48 PM EDT Health maintenance alteration CBC WITH AUTO DIFFERENTIAL Routine 05/27/2025 1:48 PM EDT Health maintenance alteration PAP SMEAR Routine 02/19/2024 3:12 PM EDT HEPATITIS C ANTIBODY Routine 10/17/2023 8:30 AM EST Left lateral epicondylitis HIV 1/2 ANTIGEN/ANTIBODY, FOURTH GENERATION W/RFL Routine 10/17/2023 8:30 AM EST Left lateral epicondylitis HPV MRNA E6/E7 Routine 09/12/2021 4:15 PM EDT from Last 3 Months or Most Recently Relevant to Health Maintenance Results * TSH W/Reflex to FT4 (05/27/2025 1:48 PM EDT) TSH reflex Free T4 1.38 0.32 - 4.0 uIU/mL [facility] Blood Venous blood specimen / Unknown 05/27/2025 1:48 PM EDT 05/27/2025 2:24 PM EDT us Aster Barriga MD LAB BLOOD ORDERABLES Final Re sult [facility] [address] [place] [phone] * (ABNORMAL) CBC auto differential (05/27/2025 1:48 PM EDT) White Blood Count 5.5 4.8 - 10.8 X10*3/uL [facility] Red Blood Count 5.09 4.20 - 5.50 X10*6/uL [facility] Hemoglobin 10.4(L) 12.0 - 16.0 g/dl [facility] Hematocrit 34.8(L) 37.0 - 47.0 % [facility] Mean Corpuscular Volume 68.4(L) 80.0 - 98.0 fL [facility] Mean Corpuscular Hemoglobin 20.4(L) 27.0 - 33.0 pg [facility] Mean Corpuscular HGB Conc 29.9(L) 31.0 - 35.0 g/dl [facility] Red Cell Distribution Width 17.1(H) 11.0 - 16.0 % [facility] Platelet Count 257 160 - 400 X10*3/uL [facility] Mean Platelet Volume 10.0 9.4 - 12.3 fL [facility] Neutrophils Percent Auto 59.2 45 - 73 % [facility] Imm Gran Pct Auto 0.4 0.0 - 0.4 % [facility] Lymphocytes Percent Auto 30.8 20 - 40 % [facility] Monocytes Percent Auto 6.9 2 - 11 % [facility] Eosinophils Percent Auto 2.0 0 - 4 % [facility] Basophils Percent Auto 0.7 0 - 2 % [facility] NRBC Pct Auto 0.0 0.0 - 0.2 /100WBC [facility] Neutrophils Absolute Auto 3.3 2.0 - 8.3 x10*3/uL [facility] Imm Gran Abs Auto 0.02 0.00 - 0.03 X10*3/uL [facility] Lymphocytes Absolute Auto 1.7 1.2 - 4.9 X10*3/uL [facility] Monocytes Absolute Auto 0.4 0.1 - 1.2 X10*3/uL [facility] Eosinophils Absolute Auto 0.1 0.0 - 0.4 X10*3/uL [facility] Basophils Absolute Auto 0.0 0.0 - 0.2 X10*3/uL [facility] NRBC Abs Auto 0.000 0.0 - 0.012 X10*3/uL [facility] Blood Venous blood specimen / Unknown 05/27/2025 1:48 PM EDT 05/27/2025 2:24 PM EDT Result [facility] Aster Barriga MD LAB BLOOD ORDERABLES Final Re sult Performing Organization Address [facility] Co ri Phone Number [facility] [address] [place] [phone] * Rheumatoid Factor (05/27/2025 1:48 PM EDT) [facility] Rheumatoid Factor <13.0 <15.0 IU/mL [facility] Blood Venous blood specimen / Unknown 05/27/2025 1:48 PM EDT 05/27/2025 2:24 PM EDT Result [facility] Aster Barriga MD LAB BLOOD ORDERABLES Final Re sult Performing Organization Address [facility]/ZIP Co ri Phone Number [facility] [address] [place] [phone] * C-reactive Protein (05/27/2025 1:48 PM EDT) [facility] C Reactive Protein 0.10 < or = 0.50 mg/dL [facility] Blood Venous blood specimen / Unknown 05/27/2025 1:48 PM EDT 05/27/2025 2:24 PM EDT Result [facility] Aster Barriga MD LAB BLOOD ORDERABLES Final Re sult Performing Organization Address [facility] Co de Phone Number [facility] [address] [place] [phone] * Lipid Panel, Standard (05/27/2025 1:48 PM EDT) Triglycerides 99 <150 mg/dL [facility] Comment:Desirable Triglyceri de: less than 150 mg/dLBorderline High Triglyceride 150-199 mg/dLHigh Triglyceride: 200-499 mg/dLVery High Triglyceride: greater than or equal to 5OO mg/dL Cholesterol 141 <200 mg/dL [facility] Comment:Desirable Cholestero l: less than 200 mg/dLBorderline High Cholesterol: 200-239 mg/dLHigh Cholesterol: greater than 239 mg/dL LDL Cholesterol Calculated 75 <100 mg/dL [facility] Comment:Desirable LDL: less than 100 mg/dLNear Optimal/Above Optimal LDL: 110- 129 mg/dLBorderline High LDL: 130-159 mg/dLHigh LDL: 160-189 mg/dLVery High LDL: greater than or equal to 190 mg/dL HDL Cholesterol 47 >40 mg/dL [facility] Comment:Desirable HDL: great er than 40 mg/dL Note: This HDL assay may give artificially low results in patients with liver disease. Blood Venous blood specimen / Unknown 05/27/2025 1:48 PM EDT 05/27/2025 2:24 PM EDT us Aster Barriga MD LAB BLOOD ORDERABLES Final Re sult [facility] [address], [place] [phone] * (ABNORMAL) Comprehensive Metabolic Panel (05/27/2025 1:48 PM EDT) Sodium 138 135 - 145 mmol/L [facility] Potassium 4.0 3.3 - 5.1 mmol/L [facility] Chloride 107 96 - 108 mmol/L [facility] Carbon Dioxide 25 22 - 29 mmol/L [facility] Anion Gap 10(L) 12 - 20 [facility] Urea Nitrogen (BUN) 8(L) 9 - 16 mg/dL [facility] Creatinine, Serum 0.71 0.5 - 1.4 mg/dL [facility] Estimated Glomerular Filt Rate >60 [facility] Comment:Chronic Kidney Disea se: Estimated GFR < 60 mL/min/[id number] Kidney Disease: Estimated GFR < 15 mL/min/1.73m2 Glucose 87 60 - 115 mg/dL [facility] Calcium 9.0 8.4 - 10.2 mg/dL [facility] Bilirubin, Total 0.7 0.0 - 1.0 mg/dL [facility] Aspartate Amino Transferase 21 5 - 31 U/L [facility] Alanine Aminotransferase 15 0 - 31 U/L [facility] Total Protein 7.3 6.5 - 8.0 g/dL [facility] Albumin Level 4.4 3.5 - 5.0 g/dL [facility] Alkaline Phosphatase 52 39 - 117 U/L [facility] Blood Venous blood specimen / Unknown 05/27/2025 1:48 PM EDT 05/27/2025 2:24 PM EDT us Aster Barriga MD LAB BLOOD ORDERABLES Final Re sult [facility] [address] [place] [phone] * Pap Smear (02/19/2024 3:12 PM EDT) 02/19/2024 3:12 PM EDT 02/20/2024 1:00 PM EDT Joel [facility] - 03/02/2024 1:18 PM EDT ----- ------- Name: Jah Cobian Age/Sex: 38/F : 1985 Unit#: [id number] Attend Dr: Jose Herrera MD Re02/19/24 Status: DEP REF Location: [facility] Disch: ----- ------- SPEC : [id number] RECD: 02/20/24-1299 STATUS: SH[facility]ON STONE NUM: [id number] RUTHY: 02/19/[address] [facility] [address]: Jose Herrera MD ENTERED: 02/20/24 SP TYPE: Pap Smr OTHR DR: Aster Barriga MD ORDERED: Pap Smear Interpretation Satisfactory for evaluation. No endocervical cells seen. Mild inflammation. Negative for intraepithelial lesion or malignancy. HPV mRNA E6/E7: NOT DETECTED This assay detects E6/E7 viral messenger RNA (mRNA) from 14 high-risk HPV types (16, 18, 31, 33, 35, 39, 45, 51, 52, 56, 58, 59, 66, 68) HPV testing performed by [facility], [place], [place]. See reference laboratory portion of the EMR for entire report. Clinical Information LMP: 02/04/24 Previous PAP test: Unknown date/findings Other history: Acute uterine and vaginal bleeding Material Received ThinPrep-Cervical Copies To: Aster Barriga MD [address] [place] [phone] Jose Herrera MD [address] [place], [place] [address]Tricia [address] [address] ----- ------- Signed (signature on file) VALENTIN Lombardi (ASCP) 03/02/24 1318 ----- ------- END OF REPORT us Generic External Data Provider LAB CYTOLOGY ORDE RABLES Final Result Performing Organization Address [facility]/ZIP Co de Phone Number [facility] [address] [place] [phone] * Hepatitis C Ab (10/17/2023 8:30 AM EST) Pathologist [facility] Hepatitis C Antibody Nonreactive Nonreactive [facility] Comment:Antibodies to HCV no t detected; does not exclude early acuteHCV infection. Blood Venous blood specimen / Unknown 10/17/2023 8:30 AM EST 10/17/2023 10:59 AM EST us Aster Barriga MD LAB BLOOD ORDERABLES Final Re sult Performing Organization Address [facility] Co de Phone Number [facility] [address] [place] [phone] * HIV-1/2 Antigen and Antibodies, Fourth Generation, with Reflexes (10/17/2023 8:30 AM EST) Pathologist [facility] HIV AB/AG Nonreactive Nonreactive [facility] Comment:HIV-1 p24 Ag and/or HIV-1/HIV-2 Ab not detected.A test result that is nonreactive does not exclude thepossibility of exposure to or infection with HIV-1 and/orHIV-2. Nonreactive results in this assay for individualswith prior exposure to HIV-1 and/or HIV-2 may be due toantigen and antibody levels that are below the limit ofdetection of this assay.The [facility] HIV Ag/Ab Combo assay result andsupplemental assay results should be interpreted inconjunction with the patient's clinical presentation,history and other laboratory results. If the results areinconsistent with clinical evidence, additional testing issuggested to confirm the result. Blood Venous blood specimen / Unknown 10/17/2023 8:30 AM EST 10/17/2023 10:59 AM EST us Aster Barriga MD LAB BLOOD ORDERABLES Final Re sult [facility] [address] [place] [phone] * HPV mRNA E6/E7 (09/12/2021 4:15 PM EDT) HPV nRNA E6/E7 Not Detected Not Detected [facility] Comment: Methodology: [employer]-Mediated Amplification This assay detects E6/E7 viral messenger RNA (mRNA) from 14 high-risk HPV types (16,18,31,33,35,39,45,51,52,56,58,59,66,68). The analytical performance characteristics of this assay have been determined by [facility]. The modifications have not been cleared or approved by the FDA. This assay has been validated pursuant to the CLIA regulations and is used for clinical purposes. For additional information, please refer to http://education.LINAGORA/faq/TDI239y6 (This link if provided for information/ educational purposes only.) 09/12/2021 4:15 PM EDT us Marianne Moeller CNM LAB BLOOD ORDERABLES Gretel l Result Performing Organization Address City/[facility]/ZIP Co de Phone Number [facility] [address] from Last 3 Months or Most Recently Relevant to Health Maintenance Insurance [facility] [address] [place] [id number] [address] [place] [id number] [place] [id number] Care Teams Hearings Reporter Relationship Specialty Start Date End Date Aster Barriga MD [address] [place] [phone] PCP - General Family Medicine 03/07/22
[2025-05-28 08:43] LABS: Syphilis Screen Nonreactive (Nonreactive)
[2025-05-28 08:54] LABS: ~HepC Num1 0.27 S/CO (0.00-0.79); ~Hepatitis C Antibody Nonreactive (Nonreactive)
[2025-06-01 07:03] LABS: Anti Nuclear Antibody Pattern Nuclear, Speckled; Anti Nuclear Antibody Screen POSITIVE (NEGATIVE); Anti Nuclear Antibody Titer 1:40 titer
[2025-06-01 19:24] LABS: Cyclic Citrullinated Peptide <16 UNITS
== END 2025-05-27 13:47 | disposition home or self-care (01) ==
LOC: HO.CHCLDS 13:46
PROVIDERS: Visit Provider Family Medicine
DX: R22.31 Localized swelling, mass and lump, right upper limb (principal); Z11.3 Encounter for screening for infections with a predominantly sexual mode of transmission; Z78.9 Other specified health status
CPT/HCPCS: 36415; 80053; 80061; 84443; 85025; 86038; 86039; 86140; 86200; 86431; 86780; 86803; 87491; 87591

== ENCOUNTER 2025-06-02 13:15 | Outpatient (REF) | payer MEDICAID, SELFPAY ==
--- OUTSIDE RECORDS SUMMARY | 2025-06-02 13:53 | XMS_ITS | Clinical Summary ---
Author Organization [employer] Address [address] [facility] 7[address] [place] [address] Care Team Providers Care Career And Guidance Counselor Name Role Phone Aster Barriga MD Primary Care Provider [phone] Allergies Active Allergy Reactions Criticality Noted Date [...] needed for wheezing. 75 mL 11 10/26/20 24 Active meclizine (Antivert) 25 MG tabletIndications: Vertigo Take 1 tablet (25 mg) by mouth if needed in the morning, at noon, and at bedtime for dizziness. 90 tablet 02/09/20 25 Active albuterol (Ventolin HFA) 108 (90 Base) MCG/ACT inhalerIndications :Mild intermittent asthma with exacerbation Inhale 2 puffs every 6 (six) hours if needed for wheezing. 18 g 02/06/20 25 Active ferrous gluconate (Fergon) 324 (38 Fe) MG tabletIndications: Anemia, unspecified type Take 1 tablet (324 mg) by mouth with breakfast. 90 tablet 1 06/02/20 25 Active sulfamethoxazole-t rimethoprim (Bactrim DS) 800-160 MG tablet Take 1 tablet by mouth 2 times daily for 3 days. 6 tablet 06/02/20 25 Active Diclofenac Sodium 1 % gel Apply 5 g topically 4 times daily. 200 g 10/16/20 025 Discontin ued(Thera py completed ) ZOLMitriptan (Zomig ZMT) 5 MG disintegrating tabletIndications: Episodic cluster headache, not intractable Take 1 tablet (5 mg) by mouth 1 (one) time if needed for migraine (Take one tab at the onset of HAMLIN; may repeat one more dose in 2 hours (KYRGYZ)) for up to 5 days. May repeat in 2 hours if unresolved. Do not exceed 10 mg in 24 hours. 10 tablet 11/05/20 23 025 Discontin ued(Thera py completed ) pantoprazole (Protonix) 20 MG EC tablet Take 1 tablet (20 mg) by mouth 2 times daily. Do not crush, chew, or split. 28 tablet 11/21/20 025 Discontin ued(Thera py completed ) Drospirenone (Slynd) 4 MG tablet Take 1 tablet by mouth in the morning. 28 tablet 11 12/03/19 24 025 Discontin ued(Thera py completed ) budesonide (Pulmicort Flexhaler) 180 MCG/ACT inhalerIndications :Exacerbation of asthma, unspecified asthma severity, unspecified whether persistent Inhale 1 puff in the morning and at bedtime. Rinse mouth with water after use to reduce aftertaste and incidence of candidiasis. Do not swallow. 1 each 10/26/20 24 025 Discontin ued(Thera py completed ) Active Problems Problem Noted Date Diagnosed Date Localized swelling of finger of right hand 05/27 Health maintenance alteration 05/27/[address] D (sexually transmitted disease) 05/27/2025 Lump in the groin 03/20/2024 Assessment & Plan (03/20/2024 3:53 PM EDT): 38 yo F with R side abdominal soft lump next to scar, r/o herniation vs other. Send [facility] , she was seen in Jan 2024, [...] Center 02/14/2024 3:30 PM Aster Barriga MD [facility] Assessment & Plan (01/18/2024 11:23 AM EST): [...] Center 01/31/2024 3:30 PM Aster Barriga MD [facility] Left lateral epicondylitis 10/16/2023 Assessment & Plan [...] of abnormal bleeding will be referred to [facility]. Possible Biopsy will be considered. -Labs: CBC, [...] organization. Date Type Department Care Team Description 06/02/2025 11:20 AM EDT Office Visit [facility] [address] [place] [phone] Name, MD Domenic Pelvic pain (Primary Dx); Dysuria 06/02/2025 Travel 06/02/2025 Results Follow-Up [facility] [address] [place] [address] Aster Barriga MD CBC auto differential, Comprehensive Metabolic Panel, Lipid Panel, Standard, Additional followed-up results: 7 05/27/2025 1:30 PM EDT Office Visit [facility] [address] [place] [address] Aster Barriga MD Localized swelling of finger of right hand (Primary Dx); Health maintenance alteration; Screening examination for STD (sexually transmitted disease); Anxiety 05/27/2025 Travel 05/27/2025 Telephone [facility] [address] [place] [phone] Aster Barriga MD Nurse Triage from Last [...] your housing situation today? I have hector vinh 09/30/[address] you li [...] Sign Reading Time Taken Comments Blood Pressure 122/82 06/02/2025 10:58 AM EDT Pulse 67 06/02/2025 10:58 AM EDT Temperature 36.9 C (98.4 F) 06/02/2025 10:58 AM EDT Respiratory Rate 18 06/02/2025 10:58 AM EDT Oxygen Saturation 99% 06/02/2025 10:58 AM EDT Inhaled Oxygen Concentration - - Weight 64.9 kg (143 lb) 06/02/2025 10:58 AM EDT Height 175 cm (5' 8.9 ) 05/27/2025 1:26 PM EDT Body Mass Index 21.18 05/27/2025 1:26 PM EDT Plan of Treatment [...] Depression Screening 01/17/2025 01/17/2024, 01/17/2024 Influenza Vaccine (#1) 2025 Tobacco Screening 10/26/2025 10/26/2024 Cervical Cancer Screening 02/18/2029 HPV/Cotest 02/18/2029 09/12/2021 Pap Smear 02/18/2029 02/19/2024, 09/12/2021 DTaP/Tdap/Td Vaccines (3 - T d or Tdap) 02/08/2031 02/08/2021, 03/18/2017 Zoster Vaccines (1 of 2) 2035 RSV Patients and Patients Aged 60 years or older (1 - 1-dose 75+ series) 2060 HIV Screening Completed 10/17/2023, 07/31/2021 Hepatitis C Screening Completed 05/27/2025 , 10/17/2023, 07/31/2021 HIB Vaccines Aged Out No longer [...] Procedure Name Priority Date/Time Associated Diagnosis Comments POCT URINALYSIS DIPSTICK Routine 06/02/2025 11:27 AM EDT Pelvic pain Dysuria POCT , URINE Routine 06/02/2025 11:24 AM EDT Pelvic pain Dysuria C-REACTIVE PROTEIN Routine 05/27/2025 1: 48 PM EDT Localized swelling of finger of right hand JAMIE SCREEN, IFA, W/REFL TITER AND PATTERN Routine 05/27/2025 1:48 PM EDT Localized swelling of finger of right hand CYCLIC CITRULLINATED PEPTIDE (CCP) AB (IGG) Routine 05/27/2025 1:48 PM EDT Localized swelling of finger of right hand RHEUMATOID FACTOR Routine 05/27/2025 1:4 8 PM EDT Localized swelling of finger of right hand HEPATITIS C AB W/REFL TO HCV RNA, QN, PCR Routine 05/27/2025 1:48 PM EDT Screening examination for STD (sexually transmitted disease) SYPHILIS SCREEN Routine 05/27/2025 1:48 PM EDT Screening examination for STD (sexually transmitted disease) TSH W/REFLEX TO FT4 Routine 05/27/2025 1 :48 PM EDT Health maintenance alteration LIPID PANEL, STANDARD Routine 05/27/2025 1:48 PM EDT Health maintenance alteration COMPREHENSIVE METABOLIC PANEL Routine 05/27/2025 1:48 PM EDT Health maintenance alteration CBC WITH AUTO DIFFERENTIAL Routine 05/27/2025 1:48 PM EDT Health maintenance alteration PAP SMEAR Routine 02/19/2024 3:12 PM EDT HIV 1/2 ANTIGEN/ANTIBODY, FOURTH GENERATION W/RFL Routine 10/17/2023 8:30 AM EST Left lateral epicondylitis HPV MRNA E6/E7 Routine 09/12/2021 4:15 PM EDT from Last 3 Months or Most Recently Relevant to Health Maintenance Results * (ABNORMAL) POCT urinalysis dipstick manually resulted (06/02/2025 11:27 AM EDT) Color, UA Yellow Clarity, UA Clear Glucose, UA Negative Bilirubin, UA Negative Ketones, UA Negative Spec Grav, UA 1.020 Blood, UA Positive(A) Negative, None Detected Comment:Small pH, UA 6.5 Protein, UA Negative Urobilinogen, UA 0.2 Leukocytes, UA Few 15(A) Negative, Rare, Trace Comment:Small Nitrite, UA Negative Negative, None Detected Appearance, UA OK Urine 06/02/2025 11:2 7 AM EDT us Domenic Arnold MD POINT OF CARE TEST ENTER/EDIT OR DERABLES Final Result * POCT , urine manually resulted (06/02/2025 11:24 AM EDT) Preg Test, Ur Negative Negative, Indeterminate, None Detected, Invalid, Specimen unsatisfactory for evaluation, Weakly Positive, 2+ Urine 06/02/2025 11:2 4 AM EDT us Domenic Arnold MD POINT OF CARE TEST ENTER/EDIT OR DERABLES Final Result * Syphilis Screen (05/27/2025 1:48 PM EDT) Pathologist [facility] Syphilis Screen Nonreactive Nonreactive [facility] Blood 05/27/2025 1:48 PM EDT 05/27/2025 2:24 PM EDT Aster Barriga MD LAB BLOOD ORDERABLES Final Re sult Performing Organization Address City/[facility]/ZIP Co de Phone Number [facility] [address] [place] [phone] * TSH W/Reflex to FT4 (05/27/2025 1:48 PM EDT) Pathologist [facility] TSH reflex Free T4 1.38 0.32 - 4.0 uIU/mL [facility] Blood Venous blood specimen / Unknown 05/27/2025 1:48 PM EDT 05/27/2025 2:24 PM EDT Aster Barriga MD LAB BLOOD ORDERABLES Final Re sult Performing Organization Address [facility] Co de Phone Number [facility] [address] [place] [phone] * (ABNORMAL) CBC auto differential (05/27/2025 1:48 PM EDT) Pathologist [facility] White Blood Count 5.5 4.8 - 10.8 X10*3/uL [facility] Red Blood Count 5.09 4.20 - 5.50 X10*6/uL [facility] Hemoglobin 10.4(L) 12.0 - 16.0 g/dl [facility] Hematocrit 34.8(L) 37.0 - 47.0 % [facility] Mean Corpuscular Volume 68.4(L) 80.0 - 98.0 fL [facility] Mean Corpuscular Hemoglobin 20.4(L) 27.0 - 33.0 pg [facility] Mean Corpuscular HGB Conc 29.9(L) 31.0 - 35.0 g/dl [facility] Red Cell Distribution Width 17.1(H) 11.0 - 16.0 % [facility] Platelet Count 257 160 - 400 X10*3/uL [facility] Mean Platelet Volume 10.0 9.4 - 12.3 fL [facility] Neutrophils Percent Auto 59.2 45 - 73 % [facility] Imm Gran Pct Auto 0.4 0.0 - 0.4 % [facility] Lymphocytes Percent Auto 30.8 20 - 40 % [facility] Monocytes Percent Auto 6.9 2 - 11 % [facility] Eosinophils Percent Auto 2.0 0 - 4 % [facility] Basophils Percent Auto 0.7 0 - 2 % [facility] NRBC Pct Auto 0.0 0.0 - 0.2 /100WBC [facility] Neutrophils Absolute Auto 3.3 2.0 - 8.3 x10*3/uL [facility] Imm Gran Abs Auto 0.02 0.00 - 0.03 X10*3/uL [facility] Lymphocytes Absolute Auto 1.7 1.2 - 4.9 X10*3/uL [facility] Monocytes Absolute Auto 0.4 0.1 - 1.2 X10*3/uL [facility] Eosinophils Absolute Auto 0.1 0.0 - 0.4 X10*3/uL [facility] Basophils Absolute Auto 0.0 0.0 - 0.2 X10*3/uL [facility] NRBC Abs Auto 0.000 0.0 - 0.012 X10*3/uL [facility] Blood Venous blood specimen / Unknown 05/27/2025 1:48 PM EDT 05/27/2025 2:24 PM EDT us Aster Barriga MD LAB BLOOD ORDERABLES Final Re sult [facility] [address] [place], [place] [phone] * Hepatitis C Antibody with Reflex to HCV, RNA, Quantitative, Real-Time PCR (05/27/2025 1:48 PM EDT) Pathologist [facility] Hepatitis C Antibody Nonreactive Nonreactive [facility] Comment:Antibodies to HCV no t detected; does not exclude early acuteHCV infection. Blood Venous blood specimen / Unknown 05/27/2025 1:48 PM EDT 05/27/2025 2:24 PM EDT Aster Barriga MD LAB BLOOD ORDERABLES Final Re sult Performing Organization Address [facility] de Phone Number [facility] [address] [place] [phone] * Cyclic Citrullinated Peptide (CCP) Antibody (IgG) (05/27/2025 1:48 PM EDT) Pathologist [facility] Cyclic Citrullinated Peptide <16 UNITS [facility] Comment:Reference RangeNegat palak: <20Weak Positive: 20-39Moderate Positive: 40-59Strong Positive: >59THIS TEST WAS PERFORMED AT:[facility] [address] [id number] VARGAS MD Blood Venous blood specimen / Unknown 05/27/2025 1:48 PM EDT 05/27/2025 2:24 PM EDT Result [facility] Aster Barriga MD LAB BLOOD ORDERABLES Final Re sult Performing Organization Address [facility] Co de Phone Number [facility] [address] [place] [phone] * Rheumatoid Factor (05/27/2025 1:48 PM EDT) Pathologist [facility] Rheumatoid Factor <13.0 <15.0 IU/mL [facility] Blood Venous blood specimen / Unknown 05/27/2025 1:48 PM EDT 05/27/2025 2:24 PM EDT Aster Barriga MD LAB BLOOD ORDERABLES Final Re sult Performing Organization Address [facility] Co de Phone Number [facility] [address] [place] [phone] * C-reactive Protein (05/27/2025 1:48 PM EDT) Pathologist [facility] C Reactive Protein 0.10 < or = 0.50 mg/dL [facility] Blood Venous blood specimen / Unknown 05/27/2025 1:48 PM EDT 05/27/2025 2:24 PM EDT us Aster Barriga MD LAB BLOOD ORDERABLES Final Re sult Performing Organization Address [facility] Co de Phone Number [facility] [address] [place] [phone] * (ABNORMAL) JAMIE Screen,IFA, with Reflex to Titer and Pattern (05/27/2025 1:48 PM EDT) Pathologist [facility] Anti Nuclear Antibody Screen POSITIVE (A) NEGATIVE [facility] Comment:JAMIE IFA is a first l ine screen for detecting thepresence of up to approximately 150 autoantibodies invarious autoimmune diseases. A positive JAMIE IFA resultis suggestive of autoimmune disease and reflexes totiter and pattern. Further laboratory testing may beconsidered if clinically indicated.For additional information, please refer [email or web address]/[email or web address](This link is being provided for informational/educational purposes only.) JAMIE Titer 1:40(A) titer [facility] Comment:A low level JAMIE tite r may be present in pre-clinicalautoimmune diseases and normal individuals. Reference Range <1:40 Negative 1:40-1:80 Low Antibody Level >1:80 Elevated Antibody Level JAMIE Pattern Nuclear, Speckled (A) [facility] Comment:Speckled pattern is associated with mixed connectivetissue disease (MCTD), systemic lupus erythematosus(SLE), Sjogren's syndrome, dermatomyositis, andsystemic sclerosis/polymyositis overlap.AC-2,4,5,29: SpeckledInternational Consensus on JAMIE Patterns(https://doi.org/10.1515/lrjy-0690-7438)THIS TEST WAS PERFORMED AT:[facility] [place] [phone] VARGAS MD JAMIE TITER 2 (REF LAB) [facility] 2 [facility] JAMIE TITER 3 [facility] JAMIE PATTERN 3 [facility] Blood Venous blood specimen / Unknown 05/27/2025 1:48 PM EDT 05/27/2025 2:24 PM EDT us Aster Barriga MD LAB BLOOD ORDERABLES Final Re sult [facility] [address] [place] [phone] * Lipid Panel, Standard (05/27/2025 1:48 PM EDT) Triglycerides 99 <150 mg/dL [facility] Comment:Desirable Triglyceri de: less than 150 mg/dLBorderline High Triglyceride 150-199 mg/dLHigh Triglyceride: 200-499 mg/dLVery High Triglyceride: greater than or equal to 5OO mg/dL Cholesterol 141 <200 mg/dL [facility] Comment:Desirable Cholestero l: less than 200 mg/dLBorderline High Cholesterol: 200-239 mg/dLHigh Cholesterol: greater than 239 mg/dL LDL Cholesterol Calculated 75 <100 mg/dL [facility] Comment:Desirable LDL: less than 100 mg/dLNear Optimal/Above Optimal LDL: 110- 129 mg/dLBorderline High LDL: 130-159 mg/dLHigh LDL: 160-189 mg/dLVery High LDL: greater than or equal to 190 mg/dL HDL Cholesterol 47 >40 mg/dL [facility] Comment:Desirable HDL: great er than 40 mg/dL Note: This HDL assay may give artificially low results in patients with liver disease. Blood Venous blood specimen / Unknown 05/27/2025 1:48 PM EDT 05/27/2025 2:24 PM EDT us Aster Barriga MD LAB BLOOD ORDERABLES Final Re sult Performing Organization Address City/[facility]/ZIP Co de Phone Number [facility] [address] [place] [phone] * (ABNORMAL) Comprehensive Metabolic Panel (05/27/2025 1:48 PM EDT) Sodium 138 135 - 145 mmol/L [facility] Potassium 4.0 3.3 - 5.1 mmol/L [facility] Chloride 107 96 - 108 mmol/L [facility] Carbon Dioxide 25 22 - 29 mmol/L [facility] Anion Gap 10(L) 12 - 20 [facility] Urea Nitrogen (BUN) 8(L) 9 - 16 mg/dL [facility] Creatinine, Serum 0.71 0.5 - 1.4 mg/dL [facility] Estimated Glomerular Filt Rate >60 [facility] Comment:Chronic Kidney Disea se: Estimated GFR < 60 mL/min/1.17v2Hbpcqu Kidney Disease: Estimated GFR < 15 mL/min/1.73m2 Glucose 87 60 - 115 mg/dL [facility] Calcium 9.0 8.4 - 10.2 mg/dL [facility] Bilirubin, Total 0.7 0.0 - 1.0 mg/dL [facility] Aspartate Amino Transferase 21 5 - 31 U/L [facility] Alanine Aminotransferase 15 0 - 31 U/L [facility] Total Protein 7.3 6.5 - 8.0 g/dL [facility] Albumin Level 4.4 3.5 - 5.0 g/dL [facility] Alkaline Phosphatase 52 39 - 117 U/L [facility] Blood Venous blood specimen / Unknown 05/27/2025 1:48 PM EDT 05/27/2025 2:24 PM EDT us Aster Barriga MD LAB BLOOD ORDERABLES Final Re sult [facility] [address] [place] [address] [phone] * Pap Smear (02/19/2024 3:12 PM EDT) 02/19/2024 3:1 2 PM EDT 02/20/2024 1:00 PM EDT Jeol [facility] - 03/02/2024 1:18 PM EDT ----- ------- Name: Jah Cobian Age/Sex: 38/F : 1985 Unit#: [id number] Attend Dr: Jose Herrera MD Re02/19/24 Status: DEP REF Location: HO.LNP Disch: ----- ------- SPEC : [id number] RECD: 02/20/24 STATUS: [place] NUM: [id number] RUTHY: 02/19/24-[address] [facility] [address]: Jose Herrera MD ENTERED: 02/20/24-142 SP TYPE: Pap Smr OT DR: Aster Barriga MD ORDERED: Pap Smear Interpretation Satisfactory for evaluation. No endocervical cells seen. Mild inflammation. Negative for intraepithelial lesion or malignancy. HPV mRNA E6/E7: NOT DETECTED This assay detects E6/E7 viral messenger RNA (mRNA) from 14 high-risk HPV types (16, 18, 31, 33, 35, 39, 45, 51, 52, 56, 58, 59, 66, 68) HPV testing performed by [facility], [place], [place]. See reference laboratory portion of the EMR for entire report. Clinical Information LMP: 02/04/24 Previous PAP test: Unknown date/findings Other history: Acute uterine and vaginal bleeding Material Received ThinPrep-Cervical Copies To: Aster Barriga MD [address] [place] [address] Jose Herrera MD [address] [place] [address] Dr. Boyer [address] [place] [phone] ----- ------- Signed (signature on file) VALENTIN Lombardi (ASCP) 03/02/24 1318 ----- ------- END OF REPORT us Generic External Data Provider LAB CYTOLOGY KARRIE SOLIS Final Result [facility] [address] [place] [phone] * HIV-1/2 Antigen and Antibodies, Fourth Generation, with Reflexes (10/17/2023 8:30 AM EST) HIV AB/AG Nonreactive Nonreactive [facility] Comment:HIV-1 p24 Ag and/or HIV-1/HIV-2 Ab not detected.A test result that is nonreactive does not exclude thepossibility of exposure to or infection with HIV-1 and/orHIV-2. Nonreactive results in this assay for individualswith prior exposure to HIV-1 and/or HIV-2 may be due toantigen and antibody levels that are below the limit ofdetection of this assay.The [employer] HIV Ag/Ab Combo assay result andsupplemental assay results should be interpreted inconjunction with the patient's clinical presentation,history and other laboratory results. If the results areinconsistent with clinical evidence, additional testing issuggested to confirm the result. Blood Venous blood specimen / Unknown 10/17/2023 8:30 AM EST 10/17/2023 10:59 AM EST us Aster Barriga MD LAB BLOOD ORDERABLES Final Re sult Performing Organization Address City/[facility]/ZIP Co de Phone Number [address] [phone] * HPV mRNA E6/E7 (09/12/2021 4:15 PM EDT) HPV nRNA E6/E7 Not Detected Not Detected [facility] Comment: Methodology: Network Support Administrator-Mediated Amplification This assay detects E6/E7 viral messenger RNA (mRNA) from 14 high-risk HPV types (16,18,31,33,35,39,45,51,52,56,58,59,66,68). The analytical performance characteristics of this assay have been determined by [facility]. The modifications have not been cleared or approved by the FDA. This assay has been validated pursuant to the CLIA regulations and is used for clinical purposes. For additional information, please refer to http://education.Quantum Secure.com/faq/XAU637b6 (This link if provided for information/ educational purposes only.) 09/12/2021 4:15 PM EDT us Marianne Moeller CNM LAB BLOOD ORDERABLES Gretel l Result Performing Organization Address City/[facility]/ZIP Co de Phone Number [facility] [address] [place] [address], from Last 3 Months or Most Recently Relevant to Health Maintenance Insurance [facility] C3 Care Teams Career And Guidance Counselor Relationship Specialty Start Date End Date Aster Barriga MD [address] [place] [phone] PCP - General Family Medicine 03/07/22
--- OUTSIDE RECORDS SUMMARY | 2025-06-02 13:53 | XMS_ITS | Clinical Summary ---
Author Organization [facility] Address [address] [place] [address] Care Team Providers Care Director Of Content And Programming Name Role Phone Unavailable Primary Care Provider Unavailabl e Social History Tobacco Use Types Packs/Day Years Used Date Smoking Tobacco: Never Assessed Comments Unknown Sex and Gender Information Value Date Recorded Sex Assigned at Not on file Legal Sex Female 3:32 PM EST Gender Identity Not on file Sexual Orientation Not on file Plan of Treatment Health Maintenance Due Date Last Done Comments DTaP,Tdap,and Td Vaccines (1 - Tdap) 2004 Hepatitis B Vaccines (1 of 3 - 19+ 3-dose series) 2004 Cervical Cancer Screening: P ap Smear 2006 COVID-19 Vaccine (2023-2 5 season) 2024 Influenza Vaccine (#1) 2025 HIB Vaccines Aged Out No longer eligi [...] on patient's age to complete this topic MMR Vaccines Aged Out No longer eligi ble based on patient's age to complete this topic Meningococcal ACWY Vaccine Aged Out N o longer eligible based on patient's age to complete this topic Meningococcal B Vaccine Aged Out No l onger eligible based on patient's age to complete this topic Pneumococcal Vaccine: Pediat rics (0 to 5 Years) and At-Risk Patients (6 to 64 Years) Aged Out No longer eligible b ased on patient's age to complete this topic RSV Immunization Patients Un hortensia 20 months Aged Out No longer eligible b ased on patient's age to complete this topic Varicella Vaccines Aged Out No longer eligible based on patient's age to complete this topic
[2025-06-02 21:11] LABS: Bacterial Vaginosis PCR POSITIVE (Negative); Candida Group PCR NOT DETECTED (Not Detect); Candida glab krusei PCR NOT DETECTED (Not Detect); Trichomonas vaginalis PCR NOT DETECTED (Not Detect)
[2025-06-02 22:21] LABS: CT PCR NOT DETECTED (Not Detect.); NG PCR NOT DETECTED (Not Detect.)
== END 2025-06-02 13:16 | disposition home or self-care (01) ==
LOC: HO.HHCLNP 13:15
PROVIDERS: Visit Provider Internal Medicine Geriatric Medicine
DX: R10.2 Pelvic and perineal pain (principal); R30.0 Dysuria
CPT/HCPCS: 81515; 87086; 87491; 87591

== ENCOUNTER 2025-07-01 11:29 | Outpatient (REF) | payer MEDICAID, SELFPAY ==
--- OUTSIDE RECORDS SUMMARY | 2025-07-01 12:14 | XMS_ITS | Clinical Summary ---
Author Organization [employer] Address [address] [place] [address] Care Team Providers Care Bobbin Cleaner Name Role Phone Aster Barriga MD Primary Care Provider [phone] Allergies Active Allergy Reactions Criticality Noted Date [...] chew. 30 capsule 2 06/10/20 24 Active albuterol (2.5 MG/3ML) 0.083% nebulizer solutionIndicati ons:Exacerbation of asthma, unspecified asthma severity, unspecified whether persistent Take 3 mL (2.5 mg) by nebulization every 6 (six) hours if needed for wheezing. 75 mL 11 10/26/20 24 025 Active meclizine (Antivert) 25 MG tabletIndication s:Vertigo Take 1 tablet (25 mg) by mouth if needed in the morning, at noon, and at bedtime for dizziness. 90 tablet 02/09/20 25 Active albuterol (Ventolin HFA) 108 (90 Base) MCG/ACT inhalerIndicatio ns:Mild intermittent asthma with exacerbation Inhale 2 puffs every 6 (six) hours if needed for wheezing. 18 g 02/06/20 25 Active ferrous gluconate (Fergon) 324 (38 Fe) MG tabletIndication s:Anemia, unspecified type Take 1 tablet (324 mg) by mouth with breakfast. 90 tablet 1 06/02/20 25 Active venlafaxine XR (Effexor XR) 37.5 MG 24 hr capsule TAKE 1 CAPSULE BY MOUTH EVERY DAY. DO NOT CRUSH OR CHEW. 30 capsule 2 10/27/20 24 025 Discontinu ed(Therapy completed) benzonatate (Tessalon Perles) 100 MG capsuleIndicatio ns:Exacerbation of asthma, unspecified asthma severity, unspecified whether persistent Take 1 capsule (100 mg) by mouth if needed in the morning, at noon, and at bedtime for cough. Do not crush or chew. 20 capsule 10/26/20 24 025 Discontinu ed(Therapy completed) sulfamethoxazole -trimethoprim (Bactrim DS) 800-160 MG tablet Take 1 tablet by mouth 2 times daily for 3 days. 6 tablet 06/02/20 25 025 metroNIDAZOLE (Flagyl) 500 MG tablet Take 1 tablet (500 mg) by mouth 2 times daily for 7 days. 14 tablet 06/03/20 25 025 Active Problems Problem Noted Date Diagnosed Date Anemia 07/01/2025 Other hemorrhoids 07/01/2025 Microcytic anemia 07/01/2025 Localized swelling of finger of right hand 05/27 Health maintenance alteration 05/27/[address] D (sexually transmitted disease) 05/27/2025 Lump in the groin 03/20/2024 Assessment & Plan (03/20/2024 3:53 PM EDT): 38 yo F with R side abdominal soft lump next to scar, r/o herniation vs other. Send [facility] , she was seen in Jan 2024, [...] Center 02/14/2024 3:30 PM Aster Barriga MD [facility] Assessment & Plan (01/18/2024 11:23 AM EST): [...] Center 01/31/2024 3:30 PM Aster Barriga MD [facility] Left lateral epicondylitis 10/16/2023 Assessment & Plan [...] of abnormal bleeding will be referred to Executive Compensation Analyst. Possible Biopsy will be considered. -Labs: CBC, [...] organization. Date Type Department Care Team Description 07/01/2025 11:15 AM EDT Office Visit [facility] [address] [place] [address] Aster Barriga MD Microcytic anemia (Primary Dx); Other hemorrhoids 07/01/2025 Travel 06/29/2025 Travel 06/03/2025 Results Follow-Up [facility] MED[facility] [address] [place] [phone] Domenic Arnold MD POCT urinalysis dipstick manually resulted, POCT , urine manually resulted, Bacterial Vaginosis, Chlamydia/N. Gonorrhoeae RNA, TMA, Urogenitial 06/02/2025 11:20 AM EDT Office Visit [facility] [address] [place] [phone] Domenic Arnold MD Pelvic pain (Primary Dx); Dysuria 06/02/2025 Travel 06/02/2025 Results Follow-Up [facility] [address] [place] [address] Aster Barriga MD CBC auto differential, Comprehensive Metabolic Panel, Lipid Panel, Standard, Additional followed-up results: 7 05/27/2025 1:30 PM EDT Office Visit [facility] [address] [place] [address] Aster Barriga MD Localized swelling of finger of right hand (Primary Dx); Health maintenance alteration; Screening examination for STD (sexually transmitted disease); Anxiety 05/27/2025 Travel 05/27/2025 Telephone [facility] [address] [place] [phone] Aster Barriga MD Nurse Triage from Last [...] Answer Date Recorded Patient Health Questionnaire-9 Score 3 07/01/2025 Patient Health Questionnaire-9 Score 3 07/01/2025 Last PHQ-9: Questionnaire Data Not on file 0 07/01/2025 Housing Stability Answer Date Recorded What is your housing situation today? I have [employer] 07/01/[address] you li ve. Do you have problems with any of the following? None of the above 07/01/2025 Food Insecurity Answer Date Recorded Within the past 12 months, y ou worried that your food would run out before you got money to buy more: Never True 07/01/2025 Within the past 12 months,th e food [...] shut off services in your home? No 07/01/2025 Depression Answer Date Recorded Patient Health Questionnaire-2 Score 1 07/01/2025 Internet Access Answer Date Recorded Internet Access Q1 Yes 07/01/2025 Internet Access Q2 Not on file 07/01/2025 Comments No Sex and Gender Information Value Date Recorded Sex Assigned at Female 10/01/2022 10:36 AM EDT Legal Sex Female 10:36 AM EDT Gender Identity Female 10/01/2022 10:36 AM EDT Sexual Orientation Straight 10/01/2022 10 :36 AM EDT Last Filed Vital Signs Vital Sign Reading Time Taken Comments Blood Pressure 109/63 07/01/2025 11:09 AM EDT Pulse 68 07/01/2025 11:09 AM EDT Temperature 36.7 C (98 F) 07/01/2025 11:09 AM EDT Respiratory Rate 20 07/01/2025 11:09 AM EDT Oxygen Saturation 99% 07/01/2025 11:09 AM EDT Inhaled Oxygen Concentration - - Weight 66.3 kg (146 lb 3.2 oz) 07/01/2025 11:09 AM EDT Height 175.3 cm (5' 9 ) 07/01/2025 11:09 AM EDT Body Mass Index 21.59 07/01/2025 11:09 AM EDT Plan of Treatment Health Maintenance Due Date Last Done Comments Family Planning (PISQ) 2000 HPV Vaccines (1 - 3-dose series) 2000 Hepatitis B Vaccines (1 of 3 - 19+ 3-dose series) 2004 SDOH Screening 03/22/2024 03/22/2023 COVID-19 Vaccine (1 - 2023-2 5 season) 2025 Postponed from 08/02 (Supply/Drug Shortage) Influenza Vaccine (#1) 2025 Disability Screening 06/29/2026 06/29/2025 Alcohol/Substance Use Screening 07/01/2026 07/01/2025 Depression Screening 07/01/2026 07/01/2025, 07/01/2025 Pneumococcal Vaccine: Pediatrics (0 to 5 Years) and At-Risk Patients (6 to 49) Years (1 of 2 - PCV) 07/01/2026 Postponed from 12/02 (Patient Refused) Tobacco Screening 07/01/2026 07/01/2025 Cervical Cancer Screening 02/18/2029 HPV/Cotest 02/18/2029 09/12/2021 [...] 06/02/2025 11:24 AM EDT Pelvic pain Dysuria CULTURE, URINE, ROUTINE Routine 06/02/2025 11:18 AM EDT Dysuria CHLAMYDIA/N. GONORRHOEAE RNA, TMA, UROGENITAL Routine 06/02/2025 11:18 AM EDT Pelvic pain Dysuria BACTERIAL VAGINOSIS PANEL Routine 06/02/2025 11:18 AM EDT Pelvic pain Dysuria C-REACTIVE PROTEIN [...] TEST ENTER/EDIT OR DERABLES Final Result * (ABNORMAL) Bacterial Vaginosis (06/02/2025 11:18 AM EDT) TRICHOMONAS VAGINALIS DETECTION BY PCR NOT DETECTED Not Detect [facility] BACTERIAL VAGINOSIS DETECTION BY PCR POSITIVE(A) Negative [facility] Comment:The BV organism targ ets of the Xpert Xpress MVP test can becommensal in women; Xpert Xpress MVP positive results forbacterial vaginosis should be considered in conjunction withother clinical and patient information to determine thedisease status. Organisms that are not detected by the XpertXpress MVP test have also been reported to be associatedwith BV and aerobic vaginitis.The Xpert Xpress MVP test performance has not been evaluatedin patients under the age of 14. KRUPA GROUP DETECTION BY PCR NOT DETECTED Not Detect [facility] Krupa glab krusei PCR NOT DETECTED Not Detect [facility] Swab Vaginal structure / Unknown 06/02/2025 11:18 AM EDT 06/02/2025 1:18 PM EDT us Domenic Arnold MD LAB MICROBIOLOGY - GENERAL ORDER LIZ Final Result [facility] [address] [place] [phone] * Chlamydia/N. Gonorrhoeae RNA, TMA, Urogenitial (06/02/2025 11:18 AM EDT) CT PCR NOT DETECTED Not Detect. [facility] Comment:A not detected test result does not exclude the possibilityof infection because test results can be affected byimproper specimen collection, concurrent antibiotic therapy,or the number of organisms in the specimen which may bebelow the sensitivity of the test. As with many diagnostictests, results from the Xpert CT/NG assay should beinterpreted in conjunction with other laboratory andclinical data available to the clinician.Xpert CT/NG performance has not been evaluated in patientsless than 14 years of age. The assay should not be used forthe evaluationof suspected sexual abuse or for other medico-legalindications. Additional testing is recommended in anycircumstance when false positive or false negative resultscould lead to adverse medical, social or psychologicalconsequences. NG PCR NOT DETECTED Not Detect. [facility] Comment:A not detected test result does not exclude the possibilityof infection because test results can be affected byimproper specimen collection, concurrent antibiotic therapy,or the number of organisms in the specimen which may bebelow the sensitivity of the test. As with many diagnostictests, results from the Xpert CT/NG assay should beinterpreted in conjunction with other laboratory andclinical data available to the clinician.Xpert CT/NG performance has not been evaluated in patientsless than 14 years of age. The assay should not be used forthe evaluationof suspected sexual abuse or for other medico-legalindications. Additional testing is recommended in anycircumstance when false positive or false negative resultscould lead to adverse medical, social or psychologicalconsequences. Swab (Vaginal Swab) 06/02/2025 11:18 AM EDT 06/02/2025 1:18 PM EDT us Domenic Arnold MD LAB MICROBIOLOGY - GENERAL ORDER LIZ Final Result Performing Organization Address City/[facility] Co de Phone Number [facility] [address] [place] [phone] * Culture, Urine, Routine (06/02/2025 11:18 AM EDT) Urine Urine specimen obtained by clean catch procedure / Unknown 06/02/2025 11:18 AM EDT 06/02/2025 1:18 PM EDT Comment:UACC Narrative [facility] - 06/03/2025 11:22 AM EDT Urine Culture No growth. Specimen Source: Urine clean catch us Domenic FALCON MICROBIOLOGY - GENERAL ORDER LIZ Final Result Performing Organization Address City/[facility]/ZIP Co de Phone Number [facility] [address] [place] [address] [phone] * Syphilis Screen (05/27/2025 1:48 PM EDT) Pathologist [facility] Syphilis Screen Nonreactive Nonreactive [facility] Blood 05/27/2025 1:48 PM EDT 05/27/2025 2:24 PM EDT Aster Barriga MD LAB BLOOD ORDERABLES Final Re sult Performing Organization Address [facility] Co de Phone Number [facility] [address] [place] [phone] * TSH W/Reflex to FT4 (05/27/2025 1:48 PM EDT) Pathologist [facility] TSH reflex Free T4 1.38 0.32 - 4.0 uIU/mL [facility] Blood Venous blood specimen / Unknown 05/27/2025 1:48 PM EDT 05/27/2025 2:24 PM EDT Aster Barriga MD LAB BLOOD ORDERABLES Final Re sult Performing Organization Address [facility] Co de Phone Number [facility] [address] [place] [phone] * (ABNORMAL) CBC auto differential (05/27/2025 1:48 PM EDT) [facility] White Blood Count 5.5 4.8 - 10.8 X10*3/uL [facility] Red Blood Count 5.09 4.20 - 5.50 X10*6/uL [facility] Hemoglobin 10.4(L) 12.0 - 16.0 g/dl [facility] Hematocrit 34.8(L) 37.0 - 47.0 % [facility] Mean Corpuscular Volume 68.4(L) 80.0 - 98.0 fL [facility] Mean Corpuscular Hemoglobin 20.4(L) 27.0 - 33.0 pg [facility] Mean Corpuscular HGB Conc 29.9(L) 31.0 - 35.0 g/dl [facility] Red Cell Distribution Width 17.1(H) 11.0 - 16.0 % [facility] Platelet Count 257 160 - 400 X10*3/uL [facility] Mean Platelet Volume 10.0 9.4 - 12.3 fL [facility] Neutrophils Percent Auto 59.2 45 - 73 % [facility] Imm Gran Pct Auto 0.4 0.0 - 0.4 % [facility] Lymphocytes Percent Auto 30.8 20 - 40 % [facility] Monocytes Percent Auto 6.9 2 - 11 % [facility] Eosinophils Percent Auto 2.0 0 - 4 % [facility] Basophils Percent Auto 0.7 0 - 2 % [facility] NRBC Pct Auto 0.0 0.0 - 0.2 /100WBC [facility] Neutrophils Absolute Auto 3.3 2.0 - 8.3 x10*3/uL [facility] Imm Gran Abs Auto 0.02 0.00 - 0.03 X10*3/uL [facility] Lymphocytes Absolute Auto 1.7 1.2 - 4.9 X10*3/uL [facility] Monocytes Absolute Auto 0.4 0.1 - 1.2 X10*3/uL [facility] Eosinophils Absolute Auto 0.1 0.0 - 0.4 X10*3/uL [facility] Basophils Absolute Auto 0.0 0.0 - 0.2 X10*3/uL [facility] NRBC Abs Auto 0.000 0.0 - 0.012 X10*3/uL [facility] Blood Venous blood specimen / Unknown 05/27/2025 1:48 PM EDT 05/27/2025 2:24 PM EDT us Aster Brariga MD LAB BLOOD ORDERABLES Final Re sult [facility] [address] [place] [phone] * Hepatitis C Antibody with Reflex to HCV, RNA, Quantitative, Real-Time PCR (05/27/2025 1:48 PM EDT) [facility] Hepatitis C Antibody Nonreactive Nonreactive [facility] Comment:Antibodies to HCV no t detected; does not exclude early acuteHCV infection. Blood Venous blood specimen / Unknown 05/27/2025 1:48 PM EDT 05/27/2025 2:24 PM EDT Aster Barriga MD LAB BLOOD ORDERABLES Final Re sult Performing Organization Address [facility] Co de Phone Number [facility] [address] [place] [phone] * Cyclic Citrullinated Peptide (CCP) Antibody (IgG) (05/27/2025 1:48 PM EDT) [facility] Cyclic Citrullinated Peptide <16 UNITS [facility] Comment:Reference RangeNegat palak: <20Weak Positive: 20-39Moderate Positive: 40-59Strong Positive: >59THIS TEST WAS PERFORMED AT:[facility] [address] [phone] VARGAS MD Blood Venous blood specimen / Unknown 05/27/2025 1:48 PM EDT 05/27/2025 2:24 PM EDT us Aster Barriga MD LAB BLOOD ORDERABLES Final Re sult Performing Organization Address [facility] Co de Phone Number [facility] [address] [place] [phone] * Rheumatoid Factor (05/27/2025 1:48 PM EDT) [facility] Rheumatoid Factor <13.0 <15.0 IU/mL [facility] Blood Venous blood specimen / Unknown 05/27/2025 1:48 PM EDT 05/27/2025 2:24 PM EDT Aster Barriga MD LAB BLOOD ORDERABLES Final Re sult Performing Organization Address [facility] Co de Phone Number [facility] [address] [place] [phone] * C-reactive Protein (05/27/2025 1:48 PM EDT) Pathologist [facility] C Reactive Protein 0.10 < or = 0.50 mg/dL [facility] Blood Venous blood specimen / Unknown 05/27/2025 1:48 PM EDT 05/27/2025 2:24 PM EDT Aster Barriga MD LAB BLOOD ORDERABLES Final Re sult Performing Organization Address [facility] de Phone Number [facility] [address] [place] [phone] [phone] * (ABNORMAL) JAMIE Screen,IFA, with Reflex to Titer and Pattern (05/27/2025 1:48 PM EDT) Pathologist [facility] Anti Nuclear Antibody Screen POSITIVE (A) NEGATIVE [facility] Comment:JAMIE IFA is a first l ine screen for detecting thepresence of up to approximately 150 autoantibodies invarious autoimmune diseases. A positive JAMIE IFA resultis suggestive of autoimmune disease and reflexes totiter and pattern. Further laboratory testing may beconsidered if clinically indicated.For additional information, please refer tohttp://education.[employer].uBank/faq/OAT485(This link is being provided for informational/educational purposes only.) JAMIE Titer 1:40(A) titer [facility] Comment:A low level JAMIE tite r may be present in pre-clinicalautoimmune diseases and normal individuals. Reference Range <1:40 Negative 1:40-1:80 Low Antibody Level >1:80 Elevated Antibody Level JAMIE Pattern Nuclear, Speckled (A) [facility] Comment:Speckled pattern is associated with mixed connectivetissue disease (MCTD), systemic lupus erythematosus(SLE), Sjogren's syndrome, dermatomyositis, andsystemic sclerosis/polymyositis overlap.AC-2,4,5,29: SpeckledInternational Consensus on JAMIE Patterns(https://doi.org/10.1515/xsak-2730-6109)THIS TEST WAS PERFORMED AT:[facility] [place] [phone] VARGAS MD JMAIE TITER 2 (REF LAB) [facility] JAMIE Pattern 2 [facility] 3 [facility] JAMIE PATTERN 3 [facility] Blood Venous blood specimen / Unknown 05/27/2025 1:48 PM EDT 05/27/2025 2:24 PM EDT us Aster Barriga MD LAB BLOOD ORDERABLES Final Re sult [facility] [address] [place] [phone] [phone] * Lipid Panel, Standard (05/27/2025 1:48 PM EDT) Triglycerides 99 <150 mg/dL [facility] Comment:Desirable Triglyceri de: less than 150 mg/dLBorderline High Triglyceride 150-199 mg/dLHigh Triglyceride: 200-499 mg/dLVery High Triglyceride: greater than or equal to 5OO mg/dL Cholesterol 141 <200 mg/dL [facility] Comment:Desirable Cholestero l: less than 200 mg/dLBorderline High Cholesterol: 200-239 mg/dLHigh Cholesterol: greater than 239 mg/dL LDL Cholesterol Calculated 75 <100 mg/dL [facility] Comment:Desirable LDL: less than 100 mg/dLNear Optimal/Above Optimal LDL: 110- 129 mg/dLBorderline High LDL: 130-159 mg/dLHigh LDL: 160-189 mg/dLVery High LDL: greater than or equal to 190 mg/dL HDL Cholesterol 47 >40 mg/dL [facility] Comment:Desirable HDL: great er than 40 mg/dL Note: This HDL assay may give artificially low results in patients with liver disease. Blood Venous blood specimen / Unknown 05/27/2025 1:48 PM EDT 05/27/2025 2:24 PM EDT us Aster Barriga MD LAB BLOOD ORDERABLES Final Re sult [facility] [address] [place], [place] [phone] * (ABNORMAL) Comprehensive Metabolic Panel (05/27/2025 1:48 PM EDT) Sodium 138 135 - 145 mmol/L [facility] Potassium 4.0 3.3 - 5.1 mmol/L [facility] Chloride 107 96 - 108 mmol/L [facility] Carbon Dioxide 25 22 - 29 mmol/L [facility] Anion Gap 10(L) 12 - 20 [facility] Urea Nitrogen (BUN) 8(L) 9 - 16 mg/dL [facility] Creatinine, Serum 0.71 0.5 - 1.4 mg/dL [facility] Estimated Glomerular Filt Rate >60 [facility] Comment:Chronic Kidney Disea se: Estimated GFR < 60 mL/min/1.76y5Bhezxl Kidney Disease: Estimated GFR < 15 mL/min/1.73m2 Glucose 87 60 - 115 mg/dL [facility] Calcium 9.0 8.4 - 10.2 mg/dL [facility] Bilirubin, Total 0.7 0.0 - 1.0 mg/dL [facility] Aspartate Amino Transferase 21 5 - 31 U/L [facility] Alanine Aminotransferase 15 0 - 31 U/L [facility] Total Protein 7.3 6.5 - 8.0 g/dL [facility] Albumin Level 4.4 3.5 - 5.0 g/dL [facility] Alkaline Phosphatase 52 39 - 117 U/L [facility] Blood Venous blood specimen / Unknown 05/27/2025 1:48 PM EDT 05/27/2025 2:24 PM EDT us Aster Barriga MD LAB BLOOD ORDERABLES Final Re sult [facility] [address] [place] [phone] * Pap Smear (02/19/2024 3:12 PM EDT) 02/19/2024 3:12 PM EDT 02/20/2024 1:00 PM EDT Narrative [facility] - 03/02/2024 1:18 PM EDT ----- ------- Name: Jah Cobian Age/Sex: 38/F : 1985 Unit#: [id number] Attend Dr: Jose Herrera MD Re02/19/24 Status: DEP REF Location: HO.LNP Disch: ----- ------- SPEC : [id number] RECD: 02/20/24-1299 STATUS: SHARON STONE NUM: [id number] RUTHY: 02/19/24-[address] [facility] [address]: Jose Herrera MD ENTERED: 02/20/24-142 SP TYPE: Pap Smr OTHR DR: Aster [...] 59, 66, 68) HPV testing performed by [facility], [place], [place]. See reference laboratory portion of the EMR for entire report. Clinical Information LMP: 02/04/24 Previous PAP test: Unknown date/findings Other history: Acute uterine and vaginal bleeding Material Received [facility]Cerv[facility] Cop[facility] To: Aster Barriga MD [address] [place] [address] Jose Herrera MD [address] [place] [address] Dr. Boyer [address] [place] [phone] ----- ------- Signed (signature on file) VALENTIN Lombardi (ASCP) 03/02/24 1318 ----- ------- END OF REPORT us Generic External Data Provider LAB CYTOLOGY KARRIE SOLIS Final Result [facility] [address] [place] [phone] * HIV-1/2 Antigen and Antibodies, Fourth Generation, with Reflexes (10/17/2023 8:30 AM EST) Pathologist [facility] HIV AB/AG Nonreactive Nonreactive [facility] Comment:HIV-1 p24 Ag and/or HIV-1/HIV-2 Ab not detected.A test result that is nonreactive does not exclude thepossibility of exposure to or infection with HIV-1 and/orHIV-2. Nonreactive results in this assay for individualswith prior exposure to HIV-1 and/or HIV-2 may be due toantigen and antibody levels that are below the limit ofdetection of this assay.The [employer] HIV Ag/Ab Combo assay result andsupplemental assay results should be interpreted inconjunction with the patient's clinical presentation,history and other laboratory results. If the results areinconsistent with clinical evidence, additional testing issuggested to confirm the result. Blood Venous blood specimen / Unknown 10/17/2023 8:30 AM EST 10/17/2023 10:59 AM EST Aster Barriga MD LAB BLOOD ORDERABLES Final Re sult [facility] [address] [place] [phone] * HPV mRNA E6/E7 (09/12/2021 4:15 PM EDT) Pathologist [facility] HPV nRNA E6/E7 Not Detected Not Detected [facility] Comment: Methodology: Sawmill Manager-Mediated Amplification This assay detects E6/E7 viral messenger RNA (mRNA) from 14 high-risk HPV types (16,18,31,33,35,39,45,51,52,56,58,59,66,68). The analytical performance characteristics of this assay have been determined by [facility]. The modifications have not been cleared or approved by the FDA. This assay has been validated pursuant to the CLIA regulations and is used for clinical purposes. For additional information, please refer to http://education.[employer].uBank/faq/UGR219q0 (This link if provided for information/ educational purposes only.) 09/12/2021 4:15 PM EDT us Marianne Moeller CN LAB BLOOD ORDERABLES Gretel jaylyn Result [facility] [address] from Last 3 Months or Most Recently Relevant to Health Maintenance Insurance [facility] [employer] [facility] Care Teams Bobbin Cleaner Relationship Specialty Start Date End Date Aster Barriga MD [address] [place] [address] PCP - General Family Medicine 03/07/22
--- OUTSIDE RECORDS SUMMARY | 2025-07-01 12:15 | XMS_ITS | Clinical Summary ---
[facility] Organization [facility] [address] [place] [address] Care Team Providers Care Cuff Maker Name Role Phone Unavailable Primary Care Provider [...] 2006 COVID-19 Vaccine (2023-2 5 season) 2024 Depression Screening 12/02/2024 Influenza Vaccine (#1) 2025 HIB Vaccines Aged [...] 5 Years) and At-Risk Patients (6 to 49 Years) Aged Out No longer eligible b ased on patient's age to complete this topic RSV Immunization Patients Un hortensia 20 months Aged Out No longer eligible b ased on patient's age to complete this topic Varicella Vaccines Aged Out No longer eligible based on patient's age to complete this topic
[2025-07-01 14:08] LABS: MANUAL DIFF FLAG NO
[2025-07-01 14:26] LABS: Hematocrit 34.6 % (37.0-47.0); Hemoglobin 10.5 g/dl (12.0-16.0); Imm Gran Abs Auto 0.01 X10*3/uL (0.00-0.03); Imm Gran Pct Auto 0.2 % (0.0-0.4); Lymphocytes Absolute Auto 1.3 X10*3/uL (1.2-4.9); Mean Corpuscular HGB Conc 30.3 g/dl (31.0-35.0); Mean Corpuscular Hemoglobin 21.3 pg (27.0-33.0); Mean Corpuscular Volume 70.0 fL (80.0-98.0); NRBC Abs Auto 0.000 X10*3/uL (0.0-0.012); NRBC Pct Auto 0.0 /100WBC (0.0-0.2); Platelet Count 216 X10*3/uL (160-400); Red Blood Count 4.94 X10*6/uL (4.20-5.50); White Blood Count 4.4 X10*3/uL (4.8-10.8)
[2025-07-01 14:39] LABS: Iron 44 mcg/dL (30-160); Percent Iron Saturation 14 % (15-50); Total Iron Binding Capacity 318 mcg/dL (228-428); Unsaturated Iron Binding 274 ug/dL
[2025-07-01 15:01] LABS: Ferritin 4 ng/mL (10-122)
[2025-07-02 14:18] LABS: Hematocrit 33.9 % (35.0-45.0); Hemoglobin 10.5 g/dL (11.7-15.5); MCH 21.9 pg (27.0-33.0); MCV 70.6 fL (80.0-100.0); RBC 4.80 Million/uL (3.80-5.10); RDW 17.3 % (11.0-15.0)
[2025-07-02 21:39] LABS: Antibody to SS-A Antigen <1.0 NEG AI (<1.0 NEG); Antibody to SS-B Antigen <1.0 NEG AI (<1.0 NEG)
== END 2025-07-01 11:30 | disposition home or self-care (01) ==
LOC: HO.CHCLDS 11:29
PROVIDERS: Visit Provider Family Medicine
DX: R76.8 Other specified abnormal immunological findings in serum (principal); D50.9 Iron deficiency anemia, unspecified
CPT/HCPCS: 36415; 82728; 83020; 83540; 85014; 85018; 85025; 85041; 86235

== ENCOUNTER 2025-10-05 11:51 | Outpatient (REF) | payer MEDICAID, SELFPAY ==
--- NOTE | ~2025-10-05 | XR_ITS ---
EXAMINATION: XR CHEST 2 VIEWS HISTORY: COUGH COMPARISON: Comparison is made with the prior examination dated 09/10/2023. FINDINGS: PA and lateral views of the chest are submitted. A rounded nodular density is seen at the right lung base which may represent a nipple shadow. No focal airspace opacities are identified. There is no pleural effusion, pneumothorax, or pulmonary vascular congestion. The heart is normal in size. The bones are intact. XR/XR chest 2V IMPRESSION: Nodular density at the right lung base which may represent a nipple shadow. Repeat films with nipple markers are recommended. Electronically signed by: Giancarlo Oquendo MD 10/05/2025 12:26 PM SHANTE
--- OUTSIDE RECORDS SUMMARY | 2025-10-05 14:40 | XMS_ITS | Encounter Summary ---
Author Organization [employer] Address [address] 7[address] [place] [address] Care Team Providers Care Pediatric Intensive Physician Name Role Phone Aster Barriga MD Primary Care Provider [phone] Reason for Visit * Reason Comments Med Refill Encounter Details Date Type Department Care Team ([facility] Contact Info) Description 03/27/2024 Refill [facility] [address] [place] [address] [phone] Victorina Mora MD [address] [place], [place] [phone] Exacerbation of asthma, unspecified asthma severity, unspecified whether persistent Social History Tobacco Use Types Packs/Day Years Used Date Smoking Tobacco: Never Passive Smoke Exposure: Never Smokeless Tobacco: Never Alcohol Use Standard Drinks/Week Comments Never 0 [...] Orientation Straight 10/01/2022 10 :36 AM EDT documented as of this encounter Plan of Treatment Not on file documented as of this encounter Visit Diagnoses Diagnosis Exacerbation of asthma, unspecified asthma severity, unspecified whether persistent documented in this encounter Additional Health Concerns Assessment Noted Time PHQ-9 Depression Total Score: 0 01/17/20 24 3:05 PM EST documented as of this encounter Care Teams Pediatric Intensive Physician Relationship Specialty Start Date End Date Aster Barriga MD [address] [place] [address] PCP - General Family Medicine 03/07/22 documented as of this encounter
--- OUTSIDE RECORDS SUMMARY | 2025-10-05 14:40 | XMS_ITS | Clinical Summary ---
[facility] Organization [facility] [address] [place] [address] Care Team Providers Care Secondary School Teacher Librarian Name Role Phone Unavailable Primary Care Provider [...] Cervical Cancer Screening: P ap Smear 2006 HPV Vaccines (1 - 3-dose SCD M series) 2012 Depression Screening 12/02/2024 COVID-19 Vaccine (1 - 2023-2 5 season) 2025 Influenza Vaccine (#1) 2025 RSV Immunization Adult Patie nts (1 - 1-dose 75+ series) 2060 HIB Vaccines Aged Out No longer eligi [...]
--- OUTSIDE RECORDS SUMMARY | 2025-10-05 14:40 | XMS_ITS | Encounter Summary ---
Author Organization [employer] Address [address] [facility] 7t [place] [address] Care Team Providers Care Engraver Seals Name Role Phone Aster Barriga MD Primary Care Provider [phone] Reason for Visit * Reason Comments Med Refill Encounter Details Date Type Department Care Team ([facility] Contact Info) Description 02/05/2025 Refill [facility] [address] [place] [address] Aster Barriga MD [address] [place] [address] Vertigo Social History Tobacco Use Types Packs/Day Years [...] as of this encounter Visit Diagnoses Diagnosis Vertigo Dizziness and giddiness documented in this encounter Additional Health Concerns Assessment Noted Time PHQ-9 Depression Total Score: 0 01/17/20 24 3:05 PM EST documented as of this encounter Care Teams Engraver Seals Relationship Specialty Start Date End Date Aster Barriga MD [address] [place] [address] PCP - General Family Medicine 03/07/22 documented as of this encounter
--- OUTSIDE RECORDS SUMMARY | 2025-10-05 14:40 | XMS_ITS | Encounter Summary ---
Author Organization [employer] Address [address] [facility] 7t [place] [address] Care Team Providers Care Press Feeder Broomcorn Name Role Phone Aster Barriga MD Primary Care Provider [phone] Encounter Details Date Type Department Care Team ([facility] Contact Info) Description 10/05/2025 Orders Only [facility] [address] [place], [place] [phone] Lenard Garcia MD [address] [place] [address] Social History Tobacco Use Types Packs/Day Years [...] on file documented as of this encounter Procedures Procedure Name Priority Date/Time Associated Diagnosis Comments XR CHEST 2 VIEWS Routine 10/05/2025 12:2 0 PM EST documented in this encounter Results * XR Chest 2 Views (10/05/2025 12:20 PM EST) Anatomical Region Laterality Modality Chest Radiographic Dolores ging 10/05/2025 12:2 0 PM EST Narrative 10/05/2025 12:29 [place] [address] XRay Report Signed Patient: Jah Cobian MR#: [id number] : 1985 Acct:[id number] Age/Sex: 39 / F ADM Date: 10/05/25 Loc: HO.HHCX Attending Dr: Aster Barriga MD Ordering Physician: Lenard Garcia MD Date of Service: 10/05/25 Procedure(s): XR chest 2V Accession Number(s): [id number] cc: Lenard Garcia MD; Aster Barriga MD Reason for Exam: COUGH EXAMINATION: XR CHEST 2 VIEWS HISTORY: COUGH COMPARISON: Comparison is made with the prior examination dated 09/10/2023. FINDINGS: PA and lateral views of the chest are submitted. A rounded nodular density is seen at the right lung base which may represent a nipple shadow. No focal airspace opacities are identified. There is no pleural effusion, pneumothorax, or pulmonary vascular congestion. The heart is normal in size. The bones are intact. XR/XR chest 2V IMPRESSION: Nodular density at the right lung base which may represent a nipple shadow. Repeat films with nipple markers are recommended. Electronically signed by: Giancarlo Oquendo MD 10/05/2025 12:26 PM EST RP Dictated By: Giancarlo Oquendo MD Signed By: <Electronically signed by Giancarlo Oquendo MD in OV> 10/05/25 1226 DD/ 1220 TD/TT: 10/05/25 1221 Delivery Assistant: Procedure Note Donotuseinterpreter, Image - 10/05/[address] [address] XRay Report Signed Patient: Jah CobianMR#: M [id number] : 1985Acct:[id number] Age/Sex: 39 / FADM Date: 10/05/25 Loc: HO.HHCX Attending Dr: Aster Barriga MD Ordering Physician: Lenard Garcia MD Date of Service: 10/05/25 Procedure(s): XR chest 2V Accession Number(s): [id number] cc: Lenard Garcia MD; Aster Barriga MD Reason for Exam: COUGH EXAMINATION: XR CHEST 2 VIEWS HISTORY: COUGH COMPARISON: Comparison is made with the prior examination dated 09/10/2023. FINDINGS: PA and lateral views of the chest are submitted. A rounded nodular density is seen at the right lung base which may represent a nipple shadow. No focal airspace opacities are identified. There is no pleural effusion, pneumothorax, or pulmonary vascular congestion. The heart is normal in size. The bones are intact. XR/XR chest 2V IMPRESSION: Nodular density at the right lung base which may represent a nipple shadow. Repeat films with nipple markers are recommended. Electronically signed by: Giancarlo Oquendo MD 10/05/2025 12:26 PM EST RP Dictated By: Giancarlo Oquendo MD Signed By: <Electronically signed by Giancarlo Oquendo MD in OV> 10/05/25 1226 DD/ 1220 TD/TT: 10/05/25 1221 Delivery Assistant: us Lenard Garcia MD IMG XR PROCEDURES Final Result documented in this encounter Visit Diagnoses Not on filedocumented in this encounter Additional Health Concerns Assessment Noted Time PHQ-9 Depression Total Score: 3 07/01/20 25 11:28 AM EDT documented as of this encounter Care Teams Press Feeder Broomcorn Relationship Specialty Start Date End Date Aster Barriga MD [address] [place] [address] PCP - General Family Medicine 03/07/22 documented as of this encounter
--- OUTSIDE RECORDS SUMMARY | 2025-10-05 14:40 | XMS_ITS | Encounter Summary ---
Author Organization [employer] Address [address] [place] [address] 7 [place] [address] Care Team Providers Care Automotive Service Porter Name Role Phone Aster Barriga MD Primary Care Provider Reason for Visit * Reason Onset Date Comments Nurse Triage 07/25/2023 Encounter Details Date Type Department Care Team ([facility] Contact Info) Description 07/25/2023 Telephone [facility] [address] [place] [address] Aster Barriga MD [address] [place] [address] Nurse Triage Social History Tobacco Use Types Packs/Day Years Used Date Smoking Tobacco: Never Passive Smoke Exposure: Never Smokeless Tobacco: Never Alcohol Use Standard Drinks/Week Comments Never 0 (1 standard drink = 0.6 oz pur e alcohol) Depression Answer Date Recorded Patient Health Questionnaire-9 Score 0 01/22/2023 Depression Answer Date Recorded Patient Health Questionnaire-2 Score 0 01/22/2023 Comments Unknown Sex and Gender Information Value Date Recorded Sex Assigned at Female 10/01/2022 10:36 AM EDT Legal Sex Female 10:36 AM EDT Gender Identity Female 10/01/2022 10:36 AM EDT Sexual Orientation Straight 10/01/2022 10 :36 AM EDT documented as of this encounter Miscellaneous Notes * Telephone Encounter - Celina Cohen - 07/25/2023 2:08 PM EDT Symptom: Vaginal Bleeding - Not Outcome: Talk to a nurse or provider within 15 minutes Reason: Heavy bleeding The caller accepted this outcome Patient speaks occitan documented in this encounter Plan of Treatment Not on file documented as of this encounter Visit Diagnoses Not on filedocumented in this encounter Additional Health Concerns Assessment Noted Time PHQ-9 Depression Total Score: 0 01/22/20 23 2:09 PM EST documented as of this encounter Care Teams Automotive Service Porter Relationship Specialty Start Date End Date Aster Barriga MD [address] [place] [phone] PCP - General Family Medicine 03/07/22 documented as of this encounter
--- OUTSIDE RECORDS SUMMARY | 2025-10-05 14:40 | XMS_ITS | Clinical Summary ---
Author Organization [employer] Address [address] [facility] 7t [place] [address] Care Team Providers Care Vice President Of Instruction Name Role Phone Aster Barriga MD Primary Care Provider [phone] Allergies Active Allergy Reactions Criticality Noted Date [...] for dizziness. 90 tablet 02/09/20 25 Active ferrous gluconate (Fergon) 324 (38 Fe) MG tabletIndication s:Anemia, unspecified type Take 1 tablet (324 mg) by mouth with breakfast. 90 tablet 1 06/02/20 Active cetirizine (ZyrTEC) 10 MG tablet Take 1 tablet (10 mg) by mouth Once per day. 30 tablet 3 08/12/20 25 026 Active fluticasone (Flonase) 50 MCG/ACT nasal spray Administer 2 sprays into each nostril Once per day. Shake gently. Before first use, prime pump. After use, clean tip and replace cap. 16 g 3 08/12/20 25 026 Active albuterol (Ventolin HFA) 108 (90 Base) MCG/ACT inhalerIndicatio ns:Mild intermittent asthma with exacerbation Inhale 2 puffs every 4 (four) hours if needed for wheezing or shortness of breath. 18 g 1 08/12/20 25 026 Active ibuprofen 600 MG tablet Take 1 tablet (600 mg) by mouth every 6 (six) hours if needed for mild pain. 40 tablet 1 08/12/20 026 Active acetaminophen (Tylenol 8 Hour) 650 MG ER tablet Take 1 tablet (650 mg) by mouth every 8 (eight) hours if needed for mild pain. Do not crush, chew, or split. 40 tablet 1 08/12/20 25 025 Active Problems Problem Noted Date [...] to scar, r/o herniation vs other. Send [facility] , she was seen in Jan 2024, [...] Center 02/14/2024 3:30 PM Aster Barriga MD [facility] Assessment & Plan (01/18/2024 11:23 AM EST): [...] Center 01/31/2024 3:30 PM Aster Barriga MD [facility] Left lateral epicondylitis 10/16/2023 Assessment & Plan [...] of abnormal bleeding will be referred to [facility]. Possible Biopsy will be considered. -Labs: CBC, [...] recommended use of brace at night Encounters Date Type Department Care Team Description 10/05/2025 Orders Only [facility] [address] [place] [address] Lenard Garcia MD 08/12/2025 2:00 PM EDT Office Visit [facility] [address] [place] [address] [place] Oakes DO COVID-19 (Primary Dx); Mild intermittent asthma with exacerbation 08/12/2025 Travel 07/27/2025 Telephone [facility] [address] [place], [place] [phone] Atser Barriga MD from Last 3 Months Immunizations Immunization Administration [...] is your housing situation today? I have hectormiah justice 07/01/[address] you [...] Sign Reading Time Taken Comments Blood Pressure 122/76 08/12/2025 1:10 PM EDT Pulse 74 08/12/2025 1:10 PM EDT Temperature 36.4 C (97.6 F) 08/12/2025 1:10 PM EDT Respiratory Rate 21 08/12/2025 1:10 PM EDT Oxygen Saturation 100% 08/12/2025 1:1 0 PM EDT Inhaled Oxygen Concentration - - Weight 66.9 kg (147 lb 6.4 oz) 08/12/2025 1:10 PM EDT dressed with shoes Height 175.3 cm (5' 9 ) 07/01/2025 11:0 9 AM EDT Body Mass Index 21.77 07/01/2025 11:09 AM EDT Plan of Treatment Health Maintenance Due Date Last Done Comments Family Planning (PISQ) 2000 HPV Vaccines (1 - 3-dose series) 2000 Hepatitis B Vaccines (1 of 3 - 19+ 3-dose series) 2004 SDOH Screening 03/22/2024 03/22/2023 COVID-19 Vaccine (1 - 2023-2 5 season) 2025 Influenza Vaccine (#1) 2025 Disability Screening 06/29/2026 06/29/2025 Alcohol/Substance Use Screening 07/01/2026 07/01/2025 Depression Screening 07/01/2026 07/01/2025, 07/01/2025 Pneumococcal Vaccine: Pediatrics (0 to 5 Years) and At-Risk Patients (6 to 49) Years (1 of 2 - PCV) 07/01/2026 Postponed from 12/02 (Patient Refused) Tobacco Screening 07/27/2026 07/27/2025 Cervical Cancer Screening 02/18/2029 HPV/Cotest 02/18/2029 09/12/2021 [...] VIEWS Routine 10/05/2025 12:2 0 PM EST POCT INFLUENZA B (ID NOW RAPID MOLECULAR) Routine 08/12/2025 1:39 PM EDT COVID-19 POCT INFLUENZA A (ID NOW RAPID MOLECULAR) Routine 08/12/2025 1:39 PM EDT COVID-19 POC SHAH ID NOW STREP A Routine 08/12/2025 1:36 PM EDT COVID-19 POCT RAPID COVID ANTIGEN Routine 08/12/2025 1:35 PM EDT COVID-19 HEPATITIS C AB W/REFL TO HCV RNA, QN, PCR Routine 05/27/2025 1:48 PM EDT Screening examination for STD (sexually transmitted disease) PAP SMEAR Routine 02/19/2024 3:12 PM EDT HIV 1/2 ANTIGEN/ANTIBODY, FOURTH GENERATION W/RFL Routine 10/17/2023 8:30 AM EST Left lateral epicondylitis HPV MRNA E6/E7 Routine 09/12/2021 4:15 PM EDT from Last 3 Months or Most Recently Relevant to Health Maintenance Results * XR Chest 2 Views (10/05/2025 12:20 PM EST) Anatomical Region Laterality Modality Chest Radiographic Dolores ging 10/05/2025 12:2 0 PM EST Narrative 10/05/2025 12:29 PM EST [address] [address] XRay Report Signed Patient: Jah Cobian MR#: [id number] : 1985 Acct:[id number] Age/Sex: 39 / F ADM Date: 10/05/25 Loc: HO.HHCX Attending Dr: Aster Barriga MD Ordering Physician: Lenard Garcia MD Date of Service: 10/05/25 Procedure(s): XR chest 2V Accession Number(s): [id number] cc: Lenard Garcia MD; Aster Barriga MD [...] 10/05/25 1226 DD/ 1220 TD/TT: 10/05/25 1221 Personal Fitness Trainer: Procedure Note Donotuseinterpreter, Image - 10/05/[address] [address] XRay Report Signed Patient: Jah CobianMR#: M [id number] : 1985Acct:[id number] Age/Sex: 39 / FADM Date: 10/05/25 Loc: HO.HHCX Attending Dr: Atser Barriga MD Ordering Physician: Lenard Garcia MD Date of Service: 10/05/25 Procedure(s): XR chest 2V Accession Number(s): [id number] cc: Lenard Garcia MD; Aster Barriga MD [...] 10/05/25 1226 DD/ 1220 TD/TT: 10/05/25 1221 Personal Fitness Trainer: Lenard Garcia MD IMG XR PROCEDURES Final Result * POCT Rapid Influenza B SHAH ID NOW (08/12/2025 1:39 PM EDT) Influenza B Negative Negative, Indeterminate [facility] QC Media Lot # [id number] [facility] Lot# Expiration Date [facility] Swab 08/12/2025 1:39 PM EDT [place] Oakes DO POINT OF CARE TEST ENTER/REJI T ORDERABLES Final Result Performing Organization Address City/[facility]/ZIP Co de Phone Number [facility] [address] [place] [phone] * POCT Rapid Influenza A SHAH ID NOW (08/12/2025 1:39 PM EDT) Influenza A Negative Negative, Indeterminate [facility] QC Media Lot # [id number] [facility] Lot# Expiration Date [facility] Swab 08/12/2025 1:39 PM EDT [place] Oakes DO POINT OF CARE TEST ENTER/REJI T ORDERABLES Final Result Performing Organization Address City/[facility]/ZIP Co de Phone Number [facility] [address] [place] [phone] * POCT Rapid Strep A SHAH ID NOW (08/12/2025 1:36 PM EDT) Pathologist [facility] Rapid Strep A Screen Negative Negative, None Detected QC Media Lot # [id number] Lot# Expiration Date Swab 08/12/2025 1:36 PM EDT [place] Oakes DO POINT OF CARE TEST ENTER/REJI T ORDERABLES Edited Result - Final * POCT Rapid Covid-19 BinaxNOW (08/12/2025 1:35 PM EDT) Pathologist [facility] Rapid COVID Ag Positive QC Media Lot # [id number] Lot# Expiration Date Swab 08/12/2025 1:35 PM EDT [place] Santiagokhari DO POINT OF CARE TEST ENTER/REJI T ORDERABLES Final Result * Hepatitis C Antibody with Reflex to HCV, RNA, Quantitative, Real-Time PCR (05/27/2025 1:48 PM EDT) [facility] Hepatitis C Antibody Nonreactive Nonreactive [facility] Comment:Antibodies to HCV no t detected; does not exclude early acuteHCV infection. Blood Venous blood specimen / Unknown 05/27/2025 1:48 PM EDT 05/27/2025 2:24 PM EDT Aster Barriga MD LAB BLOOD ORDERABLES Final Re sult [facility] [address] [place] [phone] * Pap Smear (02/19/2024 3:12 PM EDT) 02/19/2024 3:12 PM EDT 02/20/2024 1:00 PM EDT Narrative [facility] - 03/02/2024 1:18 PM EDT ----- ------- Name: Jah Cobian Age/Sex: 38/F : 1985 Unit#: [id number] Attend Dr: Jose Herrera MD Re02/19/24 Status: DEP REF Location: LNP Disch: ----- ------- SPEC : [id number] RECD: 02/20/24-1299 STATUS: SHARON STONE NUM: [id number] RUTHY: 02/19/24-[address] [facility] DR: Jose Herrera MD ENTERED: 02/20/24 [...] 59, 66, 68) HPV testing performed by [facility], [place], [place]. See reference laboratory portion of the EMR for entire report. Clinical Information LMP: 02/04/24 Previous PAP test: Unknown date/findings Other history: Acute uterine and vaginal bleeding Material Received ThinPrep-Cervical Copies To: Aster Barriga MD [address] [place] [phone] Jose Herrera MD [address] [place], [place] [address]Tricia [address] [address] ----- ------- Signed (signature on file) VALENTIN Lombardi (ASCP) 03/02/24 1318 ----- ------- END OF REPORT Generic External Data Provider LAB CYTOLOGY KARRIE SOLIS Final Result Performing Organization Address [facility]/ZIP Co de Phone Number [facility] [address] [place] [address] [phone] * HIV-1/2 Antigen and Antibodies, Fourth Generation, with Reflexes (10/17/2023 8:30 AM EST) [facility] HIV AB/AG Nonreactive Nonreactive [facility] Comment:HIV-1 p24 Ag and/or HIV-1/HIV-2 Ab not detected.A test result that is nonreactive does not exclude thepossibility of exposure to or infection with HIV-1 and/orHIV-2. Nonreactive results in this assay for individualswith prior exposure to HIV-1 and/or HIV-2 may be due toantigen and antibody levels that are below the limit ofdetection of this assay.The [employer] HIV Ag/Ab Combo assay result andsupplemental assay results should be interpreted inconjunction with the patient's clinical presentation,history and other laboratory results. If the results areinconsistent with clinical evidence, additional testing issuggested to confirm the result. Blood Venous blood specimen / Unknown 10/17/2023 8:30 AM EST 10/17/2023 10:59 AM EST Aster Barriga MD LAB BLOOD ORDERABLES Final Re sult Performing Organization Address [facility]/ZIP Co de Phone Number [facility] [address] [place] [address] [phone] * HPV mRNA E6/E7 (09/12/2021 4:15 PM EDT) HPV nRNA E6/E7 Not Detected Not Detected [facility] Comment: Methodology: Visitor Services Technician-Mediated Amplification This assay detects E6/E7 viral messenger RNA (mRNA) from 14 high-risk HPV types (16,18,31,33,35,39,45,51,52,56,58,59,66,68). The analytical performance characteristics of this assay have been determined by [facility]. The modifications have not been cleared or approved by the FDA. This assay has been validated pursuant to the CLIA regulations and is used for clinical purposes. For additional information, please refer to http://education.Helpstream.M-Files/faq/MWJ826d5 (This link if provided for information/ educational purposes only.) 09/12/2021 4:15 PM EDT us Marianne DE LAB BLOOD ORDERABLES Gretel de la o Result [facility] [address] from Last 3 Months or Most Recently Relevant to Health Maintenance Insurance [id number] [address]LLY [place]ONT[place] [id number] [place] [id number] Care Teams Vice President Of Instruction Relationship Specialty Start Date End Date Aster Barriga MD [address] [place] [phone] PCP - General Family Medicine 03/07/22
--- OUTSIDE RECORDS SUMMARY | 2025-10-05 14:40 | XMS_ITS | Encounter Summary ---
Author Organization [employer] Address [address] [place] [address] 7t [place] [address] Care Team Providers Care Refinery Operator Helper Crude Unit Name Role Phone Aster Barriga MD Primary Care Provider [phone] Encounter Details Date Type Department Care Team ([facility] Contact Info) Description 11/01/2022 Abstract [facility] MEDICINE [address] [place] [address] Provider, MD Nia Social History Tobacco Use Types Packs/Day Years Used Date Smoking Tobacco: Never Smokeless Tobacco: Never Comments Unknown Sex and Gender Information Value Date Recorded Sex Assigned at Female 10/01/2022 10:36 AM EDT Legal Sex Female 10:36 AM EDT Gender Identity Female 10/01/2022 10:36 AM EDT Sexual Orientation Straight 10/01/2022 10 :36 AM EDT COVID-19 Exposure Response Date Recorded In the last 10 days, have yo u been in contact with someone who was confirmed or suspected to have Coronavirus/COVID-19? No / Unsure 11/01/2022 12:50 PM EST documented as of this encounter Plan of Treatment Not on file documented as of this encounter Visit Diagnoses Not on filedocumented in this encounter Care Teams Refinery Operator Helper Crude Unit Relationship Specialty Start Date End Date Aster Barriga MD [address] [place] [address] PCP - General Family Medicine 03/07/22 documented as of this encounter
== END 2025-10-05 11:52 | disposition home or self-care (01) ==
LOC: HO.HHCX 11:51
PROVIDERS: PCP Family Medicine; Visit Provider Family Medicine
DX: J06.9 Acute upper respiratory infection, unspecified (principal); R05.9 Cough, unspecified
CPT/HCPCS: 71046

== ENCOUNTER → 2025-10-05 12:20 | Outpatient (BNV) | payer MEDICAID, SELFPAY | PROVIDERS: PCP Family Medicine; Visit Provider Radiology Diagnostic Radiology | DX: R91.1 Solitary pulmonary nodule (principal) | CPT/HCPCS: 71046 ==